=== PATIENT | male | born 1995 | race Caucasian/White ===

== ENCOUNTER 2016-08-10 23:24 | Emergency (ER) | payer BC ==
[~2016-08-10] VITALS: Ht 177.8 cm; Wt 78.0 kg
[~2016-08-10 23:24] MED LIST: CHLO1TAB47 PO
[2016-08-10 23:27] VITALS: TEMP 37; Ht 177.8 cm; Wt 78.0 kg
[2016-08-10] MEDS ORDERED: HYDROCODONE/ACETAMOPHEN 5/325MG TAB PO ONE (23:45)
--- NOTE | 2016-08-10 23:47 | EMERGENCY ROOM VISIT NOTE ---
History First contact with patient: 23:31 Chief Complaint: FALL Stated Complaint: FELL ON LF KNEE,CAN'T MOVE/BEND W/O INTENSE PAIN History of Present Illness The patient is a 21 year old male who presents to the Emergency Department by private vehicle for evaluation of his LEFT knee pain/injury. The patient reports that he was walking when he slipped on ice and fell striking the anterior aspect of the affected knee. He reports that he has had pain with ambulation or movement of the knee joint. He reports no history of fracture or injury of the affected knee otherwise. He denies any numbness or tingling into the distal extremity. He reports a moderate amount of discomfort to the anterior surface of the knee. He rates his current discomfort as an 8/10. He denies any associated back pain, hip pain, ankle pain, or foot pain. Review of Systems A complete 6 point review of systems was reviewed with the patient with pertinent positives and negatives as per history of present illness. All else were negative. Past Medical/Surgical History Medical Problems: (1) No chronic problems Family History Hypertension Social History Smoking Status: Never Smoker Smokeless Tobacco Use: No Alcohol Use: occasionally Drug Use: none Marital Status: single Occupation Status: [employer] student Current/Historical Medications Scheduled PRN Hydrocodone/Acetaminophen 5MG/325MG ([place] 5MG/325MG), 1-2 TABLET PO Q4H PRN for Pain Allergies Coded Allergies: No Known Allergies (Unverified , 08/10/16) Physical Exam Vital Signs Date Time Temp Pulse Resp B/P Pulse Ox O2 Delivery O2 Flow Rate FiO2 08/11/16 00:44 77 18 129/76 100 08/11/16 00:25 77 18 129/76 100 Room Air 08/10/16 23:27 37.0 84 18 112/59 98 Room Air Pain Rating (0-10): 8 Physical Exam VITAL SIGNS - Vital signs and nursing notes were reviewed. GENERAL - 21-year-old male appearing his stated age and in noticeable discomfort throughout the exam. MUSCULOSKELETAL - LEFT knee with moderate edema anteriorly. Step-off deformity noted inferiorly to the infrapatellar area. Crepitus with manipulation of the patella. Moderate tenderness to palpation over the affected area. +2/5 strength appreciated LEFT versus right. Patient unable to lift his heel off the bed. Pain with flexion of the affected knee. NEUROLOGIC/VASCULAR - Neurovascularly intact distally with +3/5 dorsalis pedis pulses palpated bilaterally. Normal sensation to light and sharp touch appreciated distally. Medical Decision & Procedures ER Provider Diagnostic Interpretation: X-ray of the LEFT knee was obtained and reviewed by myself. There is a longitudinal fracture through the midportion of the patella with a high riding patella. Moderate superficial edema noted. No other acute fractures or dislocations appreciated per my interpretation. Radiologist's impression unavailable at the time of dictation. Medications Administered Medications (Trade) Dose Ordered Sig/Gracia Route Start Time Stop Time Status Last Admin Dose Admin Acetaminophen/ Hydrocodone Bitart ([place] 5/325 Tab) 1 tab NOW ONCE PO 08/10/16 23:45 08/10/16 23:46 DC 08/10/16 23:42 1 TAB Acetaminophen/ Hydrocodone Bitart ([place] 5/325mg Home Pack) 1 homepack UD ONCE PO 08/11/16 00:00 08/11/16 00:01 DC 08/11/16 00:11 1 HOMEPACK ED Course Patient was seen and evaluated by myself. Patient was provided one [place] for pain. X-ray of the affected knee was obtained. Imaging results as above. Imaging results were reviewed with the patient who acknowledges understanding. Patient was placed in an John wrap and knee immobilizer. He was provided crutches to remain nonweightbearing. Patient remained neurovascularly intact pre-and post-splinting. I did speak with Dr. Hwang of [facility] in [place] and made him aware of the patient. They will see the patient in follow-up this week. He agrees with disposition and plan. Mother was provided images from today's visit. She will contact the office to make a follow-up appointment. They will return for any changing or worsening symptoms. Patient discharged home afebrile and in good condition. Medical Decision Given the patient's presentation and exam findings, I did elect to perform the above-mentioned workup. The patient presents today with an injury to the LEFT knee. He has a step-off deformity and is unable to lift his heel off the bed. X-ray confirms suspicion of fracture through the midportion of the patella. He likely ruptured his infrapatellar tendon as well. There is no other acute fractures appreciated per my interpretation. The patient was placed in an John wrap and provided a knee immobilizer for comfort. He is provided crutches to remain nonweightbearing. I did speak with orthopedics and consult. They agree with disposition and plan. He will follow-up this week. He will return for any changing or worsening symptoms. Patient discharged home in good condition. In the evaluation and treatment of this patient, the following differential diagnoses were considered: Patellar Fracture, Tibial Plateau Fracture, Distal Femur Fracture, ACL Injury, PCL Injury, Collateral Ligament Injury, Pes Anserine Bursitis, Maisonneuve Fracture. Impression Primary Impression: Left patella fracture Additional Impression: Patellar tendon rupture Departure Information Dispostion Home / Self-Care Condition GOOD Prescriptions Hydrocodone/Acetaminophen 5MG/325MG ([place] 5MG/325MG) Tab 1-2 TABLET PO Q4H Y for Pain, #24 TAB For Initial Treatment Prov: Richard Law PA-C 08/11/16 Referrals Gareth Prabhakar M.D. (PCP) Patient Instructions ED Fx Patella, My [facility] Additional Instructions You have been treated in the Emergency Department for a LEFT Patella Fracture. You have received pain medicine in the emergency department which impairs your ability to operate a vehicle. It is illegal for you to drive after receiving these medicines. You have been prescribed [place] to be used for pain control. This is a narcotic medication. You cannot drive or consume alcohol while on this medicine. This medicine should only be used for pain that cannot be controlled with over-the- counter pain medicines. For pain control, you can use the following fmrh-ans-resvsid medicines (if >12 yo): - Regular strength (325mg/tab) Tylenol (acetaminophen) 2 tabs every 4-6 hours as needed. Do not exceed 12 tablets in a 24 hour period. Avoid taking more than 4 grams (4000 mg) of Tylenol per day. This includes any other sources of acetaminophen you may take on a regular basis. - Regular strength (200 mg/tab) Advil (ibuprofen) 1-2 tabs every 4-6 hours as needed. Do not exceed a dose of 3200 mg per day. If this is a recent injury (<24 hrs), ice can be applied to the area of pain for the first 3 days to help decrease pain and inflammation. Ice massages can be performed by freezing water in a paper cup, peeling back the cup to expose the ice and then massaging over the affected area. You have been provided the number for an Orthopaedic Surgeon. You should call this number as soon as possible to establish a follow-up visit from today's Emergency Department visit. Keep the knee brace in place until cleared by Orthopedics. Use the crutches you have been provided to keep ALL weight off of the knee. Return to the Emergency Department if your current symptoms worsen despite treatment course outlined above. Problem Qualifiers
[2016-08-11] MEDS ORDERED: NORCO 5/325MG HOME PACK PO ONE
[2016-08-11] MEDS ORDERED: HYDR-5688 PO (00:34)
[2016-08-11 00:44] VITALS: BP 129/76; PULSE 77; O2SAT 100
--- NOTE | 2016-08-11 07:02 | DIAGNOSTIC IMAGING REPORT ---
LEFT KNEE 3 VIEWS CLINICAL HISTORY: Left knee pain status post trauma COMPARISON: None. DISCUSSION: There is a transverse fracture through the mid patellar pole. No fractures of the femur or tibia are visualized. There is prepatellar soft tissue swelling. There is a trace joint effusion. IMPRESSION: Acute patellar fracture. Electronically signed by: Alvino Alexander M.D. 08/11/2016 7:01 AM Dictated Date/Time: 08/11/2016 6:59 AM
== END 2016-08-11 00:44 | disposition home or self-care (01) ==
LOC: C.EDB 23:25 → C.EDA 08-11 00:44
DX: S82.002A Unspecified fracture of left patella, initial encounter for closed fracture (principal); S86.912A Strain of unspecified muscle(s) and tendon(s) at lower leg level, left leg, initial encounter; W00.0XXA Fall on same level due to ice and snow, initial encounter

== ENCOUNTER 2017-07-13 19:32 | Emergency (ER) | payer BC ==
[~2017-07-13] VITALS: Ht 177.8 cm; Wt 90.2 kg
[2017-07-13 19:34] VITALS: BP 149/83; PULSE 94; TEMP 37.2; O2SAT 94; Ht 177.8 cm; Wt 90.2 kg
[2017-07-13] MEDS ORDERED: IBUPROFEN 600 MG TAB PO STA (20:00)
--- NOTE | 2017-07-13 20:25 | DIAGNOSTIC IMAGING REPORT ---
RIGHT ANKLE 3 VIEWS HISTORY: R ankle pain COMPARISON: None. FINDINGS: There is no fracture or dislocation. Lateral soft tissue swelling. No radiopaque foreign bodies. IMPRESSION: No fractures. Electronically signed by: Gareth Llamas M.D. 07/13/2017 8:24 PM Dictated Date/Time: 07/13/2017 8:23 PM
--- NOTE | 2017-07-13 23:38 | EMERGENCY ROOM VISIT NOTE ---
ED Visit Note First contact with patient: 19:56 Chief Complaint: Right ankle pain. History of Present Illness: Mr. Phillips is a 22-year-old white male who ambulates into the ED complaining of lateral right ankle pain. Patient reports approximately 1.5 hours ago he was walking down steps and slipped and fell down 2-3 steps and twisted his ankle. Currently he is complaining of sharp pain over the lateral malleolus area. He rates his discomfort 3/10. The pain is nonradiating. The pain worsens with palpation and ambulation. He has not identified any alleviating factors related to the pain. He has not taken any medication for pain prior to arrival at the hospital. He denies any associated symptoms including hip pain, knee pain, lower leg pain, foot pain, leg/foot weakness/numbness/tingling. Additionally he denies any previous significant injuries or surgeries to the ankle. Review of Systems: As noted above in history of present illness. Past Medical History: Patient denies. Current Medications: Patient denies. Allergies to Medications: Patient denies. Social History: Patient feels safe in his home environment; he denies tobacco use. Physical Examination: Vital Signs: Date Time Temp Pulse Resp B/P (MAP) Pulse Ox O2 Delivery O2 Flow Rate FiO2 07/13/17 19:34 37.2 94 18 149/83 94 Room Air GENERAL: 22-year-old male in mild distress due to pain, nontoxic-appearing, afebrile and hemodynamically stable. NEUROLOGICAL: Awake, alert and oriented to person, place and time. Answering questions appropriately and following commands. Normal gait. Good hand eye coordination. SKIN: Warm, dry and pink. No soft tissue trauma noted. RIGHT LOWER EXTREMITY: No gross bony deformity. No tenderness in the hip, knee , lower leg or foot. Moderate tenderness with swelling over the anterior lateral malleolus. I do not appreciate any bony deformity or crepitus. No ligamentous laxity was observed. Full range of motion in plantar flexion, dorsiflexion, inversion and eversion of the ankle against resistance. Throughout the foot the skin was warm and pink and capillary refill is brisk. He was able to distinguish light sensations through all dermatomes. ED Course: Patient is assessed as noted above. Patient's medication list was reviewed. Patient is given 600 mg of ibuprofen by mouth and ice for pain and comfort. Right Ankle X-Rays: Were read by myself and the radiologist showing no fractures or dislocations. Patient was placed in a gel splint and on nonweightbearing crutches. Patient was educated about today's findings and instructed on his treatment plan ; he verbalized understanding and agreement with this plan. Clinical Impression: Right ankle pain. Disposition: Patient discharged home in stable condition accompanied by his mother and female friends; prior to departure he was reassessed and subjectively reported he was pain-free. Plan: For measures were discussed with the patient including rest, ice, elevation, splint and crutch use. Patient is encouraged to follow-up with critical care nurse specialist if no better in 7- 10 days. Patient is encouraged return ED for worsening/uncontrolled pain, uncontrolled swelling, foot weakness/numbness/tingling or any new/concerning symptoms.
== END 2017-07-13 20:40 | disposition home or self-care (01) ==
LOC: C.EDB 19:33 → C.EDD 20:40
DX: M25.571 Pain in right ankle and joints of right foot (principal)

== ENCOUNTER 2020-12-03 21:04 | Inpatient (IN) ==
[2020-12-03] MEDS ORDERED: PIPERACILLIN/TAZOBACTAM 4.5 GM/120 ML BAG IV ONE (21:50)
[2020-12-03] MEDS ORDERED: ALBUT/IPRATROP 3MG/0.5MG NEB 3 ML VIAL NEB STA (21:50)
[2020-12-03] MEDS ORDERED: PIPERACILL/TAZOBAC CONSULT ACTIVE PRN (21:50)
[2020-12-03] MEDS ORDERED: IBUPROFEN 800 MG TAB PO STA (21:52)
[2020-12-03] MEDS ORDERED: SODIUM CHLORIDE 0.9% 1000ML 1,000 ML IV SCH ×2 (22:00)
[2020-12-03 22:07] LABS: Basophils # (auto) 0.01 K/uL (0-0.2); Basophils % (auto) 0.1 %; Eosinophils # (auto) 0.01 K/uL (0-0.5); Eosinophils % (auto) 0.1 %; Hematocrit (blood only) 40.4 % (42-52); Hemoglobin 14.3 g/dL (14.0-18.0); Immature Granulocytes # (auto) 0.02 K/uL (0.00-0.02); Immature Granulocytes % (auto) 0.2 %; Lymphocytes # (auto) 0.94 K/uL (1.2-3.4); Lymphocytes % (auto) 8.2 %; Mean Corpuscular Hemoglobin 31.4 pg (25-34); Mean Corpuscular Hgb Conc 35.4 g/dL (32-36); Mean Corpuscular Volume 88.8 fL (80-100); Mean Platelet Volume 9.1 fL (7.4-10.4); Monocytes # (auto) 0.21 K/uL (0.11-0.59); Monocytes % (auto) 1.8 %; Neutrophils # (auto) 10.32 K/uL (1.4-6.5); Neutrophils % (auto) 89.6 %; Platelet Count 377 K/uL (130-400); RDW Coefficient of Variation 12.6 % (11.5-14.5); RDW Standard Deviation 40.8 fL (36.4-46.3); Red Blood Count 4.55 M/uL (4.7-6.1); White Blood Count 11.51 K/uL (4.8-10.8)
[2020-12-03 22:18] LABS: INR 1.1 (0.9-1.1); Partial Thromboplastin Ratio 1.1; Partial Thromboplastin Time 27.7 Seconds (21.0-31.0); Prothrombin Time 11.4 Seconds (9.0-12.0)
[2020-12-03 22:25] LABS: Albumin Globulin Ratio 0.7 (0.9-2); Albumin Level 3.5 gm/dl (3.4-5.0); Bilirubin,Total 1.1 mg/dl (0.2-1); Calcium 9.8 mg/dl (8.5-10.1); Creatinine Clr Calc Pharmacy 131.7 ml/min; Est GFR (African American) 123.5; Est GFR (Non-African American) 106.6; Globulin 5.2 gm/dl (2.5-4.0); Magnesium 2.4 mg/dl (1.8-2.4); Potassium 3.3 mmol/L (3.5-5.1); Total Protein 8.7 gm/dl (6.4-8.2)
--- NOTE | 2020-12-03 22:57 | History & Physical Report ---
Date of Service December 03, 2020 Assessment & Plan (1) Community acquired pneumonia: 25yo C male with CAP, failed outpatient regimen of Amoxicillin and Azithromycin, persistent fever and PO intolerance, report of hypoxia to 89% on RA from home. Patient admitted with similar presentation to [facility] one year ago -Admit to medical -Follow cultures -Check S. pneumoniae and Legionella -Ceftriaxone and Azithromycin for now -Tessalon -Flutter valve and IS -Zofran and Tylenol PRN -Obtain records from [facility] F/E/N - NSS at 125mL/hr x 2 liters, K repletion, Regular diet as tolerated Ppx - Lovenox 40 Code - Full Dispo - Admit to medical Present on Admission?: Yes History of Present Illness Chief Complaint: CAP Primary Care Provider: Pamela Rolle 25yo C male presenting with community acquired pneumonia with failed outpatient therapy. Patient's symptoms of cough, SOB, body aches, fever and chest tightness began on 11/29/20. He was seen in the ER on 11/30/20 and sent home with Azithromycin and Amoxicillin which he started on 11/30. He returned to the ER on 12/02/20 due to persistence of symptoms and was discharged home after medical consultation with instruction to continue antibiotics as prescribed, rest and aggressively hydrate. Patient returns today with persistent symptoms. He has been febrile ongoing for the last several days, responsive briefly to Tylenol. He has been taking his antibiotics but continues to feel ill - no energy, ongoing nausea, inability to tolerate PO. He also noted oxygen saturation of 89% at home. He has a dry cough with some chest discomfort. Of note, patient was hospitalized at [facility] x 5 days in September 2019 for similar presentation. He was treated with IV antibiotics and evaluated by several specialists. He does not have a history of asthma. His sister has an IgG deficiency and patient's mother is planning to have patient evaluated for the same. ER Course: 2L NSS, Moises, Teo Allergies Allergy/AdvReac Type Severity Reaction Status Date / Time No Known Allergies Allergy Verified 12/03/20 21:29 Home Medications Medication Instructions Recorded Confirmed Type albuterol sulfate 2 inh INHALATION Q4H PRN #8.5 g 11/30/20 12/03/20 Rx amoxicillin 1,000 mg PO Q8H 5 Days #30 cap 11/30/20 12/03/20 Rx azithromycin See Rx Instructions .ROUTE 11/30/20 12/03/20 Rx .COMPLEX #6 tab benzonatate [Tessalon Perles] 100 mg PO Q6H PRN #20 cap 11/30/20 12/03/20 Rx Past Med/Surg History Medical History Community acquired pneumonia Surgical History (Updated 12/03/20 @ 22:52 by Dyan Payan DO) History of tonsillectomy and adenoidectomy History of wisdom tooth extraction Family History (Updated 12/03/20 @ 22:52 by Dyan Payan DO) Other Hypertension IgG deficiency Social History (Updated 12/02/20 @ 03:12 by Dyan Payan DO) Smoking Status: Never smoker Hx Alcohol Use: Yes Hx Substance Use: No Preferred Language: Kenyan Feels Safe at Home: Yes Review of Systems Review of Systems: All systems reviewed & are unremarkable except as noted in HPI & below Physical Exam Physical Exam: General: patient resting comfortably, NAD, ill in appearance, AA&O x 4 Skin: warm, dry, intact, no rashes or lesions, HEENT: NC/AT, PERRL, EOMI, anicteric sclera, conjunctiva without injection, external ear normal to inspection and nontender, nares patent, slightly dry mucus membranes, dentition intact, no oropharyngeal lesions, neck supple, trachea midline, no LAD, no thyromegaly, no JVD Heart: +S1/S2, regular, tachycardic, no m/r/g Lungs: equal air entry bilaterally, +crackles in right mid-lung field, no rhonchi/wheezes Abd: +BS, soft, NT/ND, no masses/organomegaly/ascites Ext: warm, 2+ pulses in UE/LE bilaterally, no clubbing/cyanosis or edema Neuro: nonfocal, patient AA&O x 4, speech intact, no facial droop, moving all extremities on command with equal strength 5/5 Results & Data Results & Data (MN) Vital Signs (Past 12 Hours) Vital Signs Temp Pulse Pulse Resp BP Pulse Ox 12/03/20 22:33 114 H 22 137/71 96 05/08/21 22:09 108 H 20 93 12/03/20 22:06 93 12/03/20 21:52 39 C H 12/03/20 21:26 122 H 23 128/80 91 12/03/20 21:08 37.9 C H 144 H 24 120/74 91 Laboratory Results Laboratory Results WBC 11.51 K/uL (4.8-10.8) H 12/03/20 21:40 RBC 4.55 M/uL (4.7-6.1) L 12/03/20 21:40 Hgb 14.3 g/dL (14.0-18.0) 12/03/20 21:40 Hct 40.4 % (42-52) L 12/03/20 21:40 MCV 88.8 fL (80-100) 12/03/20 21:40 MCH 31.4 pg (25-34) 12/03/20 21:40 MCHC 35.4 g/dL (32-36) 12/03/20 21:40 RDW Std Deviation 40.8 fL (36.4-46.3) 12/03/20 21:40 RDW Coeff of Tony 12.6 % (11.5-14.5) 12/03/20 21:40 Plt Count 377 K/uL (130-400) 12/03/20 21:40 MPV 9.1 fL (7.4-10.4) 12/03/20 21:40 Immature Gran % (Auto) 0.2 % 12/03/20 21:40 Neut % (Auto) 89.6 % 12/03/20 21:40 Lymph % (Auto) 8.2 % 12/03/20 21:40 [place] % (Auto) 1.8 % 12/03/20 21:40 Eos % (Auto) 0.1 % 12/03/20 21:40 Baso % (Auto) 0.1 % 12/03/20 21:40 Neut # (Auto) 10.32 K/uL (1.4-6.5) H 12/03/20 21:40 Lymph # (Auto) 0.94 K/uL (1.2-3.4) L 12/03/20 21:40 [place] # (Auto) 0.21 K/uL (0.11-0.59) 12/03/20 21:40 Eos # (Auto) 0.01 K/uL (0-0.5) 12/03/20 21:40 Baso # (Auto) 0.01 K/uL (0-0.2) 12/03/20 21:40 Immature Gran # (Auto) 0.02 K/uL (0.00-0.02) 12/03/20 21:40 PT 11.4 Seconds (9.0-12.0) 12/03/20 21:40 INR 1.1 (0.9-1.1) 12/03/20 21:40 APTT 27.7 Seconds (21.0-31.0) 12/03/20 21:40 PTT Ratio 1.1 12/03/20 21:40 Sodium 136 mmol/L (136-145) 12/03/20 21:40 Potassium 3.3 mmol/L (3.5-5.1) L D 12/03/20 21:40 Chloride 102 mmol/L (98-107) 12/03/20 21:40 Carbon Dioxide 22 mmol/L (21-32) 12/03/20 21:40 Anion Gap 12.0 (3-11) H 12/03/20 21:40 BUN 8 mg/dl (7-18) 12/03/20 21:40 Creatinine 0.97 mg/dl (0.6-1.4) 12/03/20 21:40 Est Cr Clr Drug Dosing 131.7 ml/min 12/03/20 21:40 Est GFR ( Amer) 123.5 12/03/20 21:40 Est GFR (Non-Af Amer) 106.6 12/03/20 21:40 BUN/Creatinine Ratio 8.0 (10-20) L 12/03/20 21:40 Glucose 109 mg/dl (70-99) H 12/03/20 21:40 Lactate 1.4 mmol/L (0.4-2.0) 12/03/20 21:40 Calcium 9.8 mg/dl (8.5-10.1) 12/03/20 21:40 Magnesium 2.4 mg/dl (1.8-2.4) 12/03/20 21:40 Total Bilirubin 1.1 mg/dl (0.2-1) H 12/03/20 21:40 AST 26 U/L (15-37) 12/03/20 21:40 ALT 29 U/L (12-78) 12/03/20 21:40 Alkaline Phosphatase 88 U/L (45-117) 12/03/20 21:40 Total Protein 8.7 gm/dl (6.4-8.2) H 12/03/20 21:40 Albumin 3.5 gm/dl (3.4-5.0) 12/03/20 21:40 Globulin 5.2 gm/dl (2.5-4.0) H 12/03/20 21:40 Albumin/Globulin Ratio 0.7 (0.9-2) L 12/03/20 21:40 COVID-19 Eval Order [facility]Rsv at [facility] 12/03/20 22:18 Code Status & VTE Plan VTE Prophylaxis Plan VTE Prophylaxis will be ordered: Yes PG Care Time/CCT Total # of Minutes Spent Total Time Spent with Patient: Total time spent is greater than 50% in coor dination of care (as documented) at patient's floor/unit and/or counseling patient: Coding Level of Care Code 07885 Initial Inpt Care Lvl 2 Diagnoses Community acquired pneumonia J18.9 Laterality: unspecified laterality (1) Community acquired pneumonia Laterality: unspecified laterality Qualified Code(s): J18.9 - Pneumonia, unspecified organism
[2020-12-03 23:07] LABS: Influenza A virus by PCR Negative (Neg); Influenza B virus by PCR Negative (Neg); RSV by PCR Negative (Neg); SARS CoV2 RNA(COVID-19) InHosp NEGATIVE (Negative)
--- NOTE | 2020-12-03 23:15 | Emergency Department Note ---
History of Present Illness General Chief complaint: Illness Stated complaint: VOMITING, FEVER, CHILLS Time Seen by Provider: 12/03/20 21:26 History of Present Illness Maximum Pain Intensity: 4 This 25-year-old who has been seen twice for his pneumonia presents to the ER complaining of worsening pneumonia symptoms Location: Generalized Quality: Weak Severity: Moderate Duration: Past 5 days Timing: Started Saturday Context: Patient was concerned and came in Modifying factors: better with rest; worse with activity Patient states he has not been drinking or eating much. He feels quite weak and sick. He took Tylenol a few hours ago. No recent Motrin. He has been taking his antibiotics. Home Medications Medication Instructions Recorded Confirmed Type albuterol sulfate 2 inh INHALATION Q4H PRN #8.5 g 11/30/20 12/03/20 Rx amoxicillin 1,000 mg PO Q8H 5 Days #30 cap 11/30/20 12/03/20 Rx azithromycin See Rx Instructions .ROUTE 11/30/20 12/03/20 Rx .COMPLEX #6 tab benzonatate [Tessalon Perles] 100 mg PO Q6H PRN #20 cap 11/30/20 12/03/20 Rx Allergies Allergy/AdvReac Type Severity Reaction Status Date / Time No Known Allergies Allergy Verified 12/03/20 21:29 Past Med/Surg History Medical History Community acquired pneumonia Surgical History History of tonsillectomy and adenoidectomy History of wisdom tooth extraction Family History Other Hypertension IgG deficiency Social History Smoking Status: Never smoker Hx Alcohol Use: Yes Hx Substance Use: No Preferred Language: Venezuelan Feels Safe at Home: Yes Review of Systems A total of 10 systems reviewed and were otherwise negative Physical Exam Vital Signs Vital Signs - 24 hr 12/03/20 21:08 12/03/20 21:26 12/03/20 21:52 Temperature 37.9 C H 39 C H Temperature Source Temporal Artery Scan Oral Pulse Rate 144 H 122 H Pulse Rate [Right Radial] Respiratory Rate 24 23 Respiratory Effort / Characteristics Blood Pressure 120/74 128/80 Blood Pressure Mean 89 96 Pulse Oximetry 91 91 Oxygen Delivery Method Room Air Sepsis Recent Fever Within 48 Hours Yes Sepsis New/Unexplained Change in Mental Status N/A Sepsis Action Taken by Nursing No Action Required 12/03/20 22:06 12/03/20 22:09 12/03/20 22:33 Temperature Temperature Source Pulse Rate 114 H Pulse Rate [Right Radial] 108 H Respiratory Rate 20 22 Respiratory Effort / Characteristics Non-Labored Spontaneous Blood Pressure 137/71 Blood Pressure Mean 93 Pulse Oximetry 93 93 96 Oxygen Delivery Method Room Air Room Air Sepsis Recent Fever Within 48 Hours Sepsis New/Unexplained Change in Mental Status Sepsis Action Taken by Nursing 12/03/20 23:01 Temperature 38.3 C H Temperature Source Oral Pulse Rate Pulse Rate [Right Radial] Respiratory Rate Respiratory Effort / Characteristics Blood Pressure Blood Pressure Mean Pulse Oximetry Oxygen Delivery Method Sepsis Recent Fever Within 48 Hours Sepsis New/Unexplained Change in Mental Status Sepsis Action Taken by Nursing VITALS: Vitals are noted on the nurse's note and reviewed by myself. Vital signs febrile. GENERAL: Ill-appearing patient coughing SKIN: The skin was without rashes, erythema, edema, or bruising. There is no tenting of the skin. Capillary reflex less than 2 seconds. HEAD: Normocephalic atraumatic. EARS: External auditory canals clear, tympanic membranes pearly sprague without erythema or effusion bilaterally. EYES: Pupils equal round and reactive to light and accommodation. Conjunctivae without injection, sclerae without icterus. Extraocular movements intact. NOSE: Patent, turbinates without inflammation or discharge. No sinus tenderness. MOUTH: Mucous membranes dry. Pharynx without erythema or exudate. Uvula mid line. Airway patent. Tongue does not deviate. NECK: Supple without nuchal rigidity. No lymphadenopathy. No thyromegaly. Cervical spine is nontender. No JVD. HEART: Mildly tachycardic rate and rhythm LUNGS: Bibasilar rales. No retractions or accessory muscle use. ABDOMEN: Positive bowel sounds x 4. Normal tympanic percussion. Soft, nontender, without masses or organomegaly. Nair sign negative. No guarding or rebound tenderness. No CVA tenderness MUSCULOSKELETAL: No muscle atrophy, erythema, or edema noted. NEURO: Patient was alert and oriented to person place and time. Normal sensation to light and sharp touch. No focal neurological deficits. Course Administered Medications Discontinued Medications Albuterol (Albut/Ipratrop 3mg/0.5mg Neb 3 Ml Vial) 3 ml NEB NOW STA Stop: 12/03/20 21:51 Last Admin: 12/03/20 22:07 Dose: 3 ml Documented by: [id number] Sodium Chloride (Nss 1000ml) 1,000 mls @ 999 mls/hr IV .Q1H1M JANY Stop: 12/03/20 23:00 Last Infusion: 12/03/20 23:06 Dose: 0 mls/hr Documented by: [id number] Admin: 12/03/20 22:03 Dose: 999 mls/hr Documented by: [id number] Sodium Chloride (Nss 1000ml) 1,000 mls @ 999 mls/hr IV .Q1H1M JANY Stop: 12/03/20 22:51 Last Admin: 12/03/20 23:05 Dose: 999 mls/hr Documented by: [id number] Piperacillin Sod/Tazobactam Sod (Zosyn) 4.5 gm in 120 mls @ 240 mls/hr IV NOW ONE Stop: 12/03/20 22:19 Last Infusion: 12/03/20 22:59 Dose: 0 mls/hr Documented by: [id number] Admin: 12/03/20 22:16 Dose: 240 mls/hr Documented by: [id number] Ibuprofen (Ibuprofen 800 Mg Tab) 800 mg PO NOW STA Stop: 12/03/20 21:53 Last Admin: 12/03/20 22:02 Dose: 800 mg Documented by: [id number] Medical Decision Making Medical Records Attestation: I reviewed the patient's medical records. Home Medications Current Medication List: was personally reviewed by me Laboratory Data Attestation: I reviewed the patient's lab results. Result diagrams: 12/03/20 21:40 12/03/20 21:40 Lab Results 12/03/20 12/03/20 12/03/20 Range/Units 21:40 21:40 21:40 WBC 11.51 H (4.8-10.8) K/uL RBC 4.55 L (4.7-6.1) M/uL Hgb 14.3 (14.0-18.0) g/dL Hct 40.4 L (42-52) % MCV 88.8 (80-100) fL MCH 31.4 (25-34) pg MCHC 35.4 (32-36) g/dL RDW Std Deviation 40.8 (36.4-46.3) fL RDW Coeff of Tony 12.6 (11.5-14.5) % Plt Count 377 (130-400) K/uL MPV 9.1 (7.4-10.4) fL Immature Gran % (Auto) 0.2 % Neut % (Auto) 89.6 % Lymph % (Auto) 8.2 % Spalding % (Auto) 1.8 % Eos % (Auto) 0.1 % Baso % (Auto) 0.1 % Neut # (Auto) 10.32 H (1.4-6.5) K/uL Lymph # (Auto) 0.94 L (1.2-3.4) K/uL Sp[place]ding # (Auto) 0.21 (0.11-0.59) K/uL Eos # (Auto) 0.01 (0-0.5) K/uL Baso # (Auto) 0.01 (0-0.2) K/uL Immature Gran # (Auto) 0.02 (0.00-0.02) K/uL PT 11.4 (9.0-12.0) Seconds INR 1.1 (0.9-1.1) APTT 27.7 (21.0-31.0) Seconds PTT Ratio 1.1 Sodium 136 (136-145) mmol/L Potassium 3.3 L D (3.5-5.1) mmol/L Chloride 102 (98-107) mmol/L Carbon Dioxide 22 (21-32) mmol/L Anion Gap 12.0 H (3-11) BUN 8 (7-18) mg/dl Creatinine 0.97 (0.6-1.4) mg/dl Est Cr Clr Drug Dosing 131.7 ml/min Est GFR ( Amer) 123.5 Est GFR (Non-Af Amer) 106.6 BUN/Creatinine Ratio 8.0 L (10-20) Glucose 109 H (70-99) mg/dl Lactate (0.4-2.0) mmol/L Calcium 9.8 (8.5-10.1) mg/dl Magnesium 2.4 (1.8-2.4) mg/dl Total Bilirubin 1.1 H (0.2-1) mg/dl AST 26 (15-37) U/L ALT 29 (12-78) U/L Alkaline Phosphatase 88 (45-117) U/L Total Protein 8.7 H (6.4-8.2) gm/dl Albumin 3.5 (3.4-5.0) gm/dl Globulin 5.2 H (2.5-4.0) gm/dl Albumin/Globulin Ratio 0.7 L (0.9-2) COVID-19 Eval Order SARS-CoV-2 (PCR) (Negative) Influenza Type A (PCR) (Neg) Influenza Type B (PCR) (Neg) RSV (RT-PCR) (Neg) 12/03/20 12/03/20 12/03/20 Range/Units 21:40 22:18 22:18 WBC (4.8-10.8) K/uL RBC (4.7-6.1) M/uL Hgb (14.0-18.0) g/dL Hct (42-52) % MCV (80-100) fL MCH (25-34) pg MCHC (32-36) g/dL RDW Std Deviation (36.4-46.3) fL RDW Coeff of Tony (11.5-14.5) % Plt Count (130-400) K/uL MPV (7.4-10.4) fL Immature Gran % (Auto) % Neut % (Auto) % Lymph % (Auto) % Spalding % (Auto) % Eos % (Auto) % Baso % (Auto) % Neut # (Auto) (1.4-6.5) K/uL Lymph # (Auto) (1.2-3.4) K/uL Sp[place]ding # (Auto) (0.11-0.59) K/uL Eos # (Auto) (0-0.5) K/uL Baso # (Auto) (0-0.2) K/uL Immature Gran # (Auto) (0.00-0.02) K/uL PT (9.0-12.0) Seconds INR (0.9-1.1) APTT (21.0-31.0) Seconds PTT Ratio Sodium (136-145) mmol/L Potassium (3.5-5.1) mmol/L Chloride (98-107) mmol/L Carbon Dioxide (21-32) mmol/L Anion Gap (3-11) BUN (7-18) mg/dl Creatinine (0.6-1.4) mg/dl Est Cr Clr Drug Dosing ml/min Est GFR ( Amer) Est GFR (Non-Af Amer) BUN/Creatinine Ratio (10-20) Glucose (70-99) mg/dl Lactate 1.4 (0.4-2.0) mmol/L Calcium (8.5-10.1) mg/dl Magnesium (1.8-2.4) mg/dl Total Bilirubin (0.2-1) mg/dl AST (15-37) U/L ALT (12-78) U/L Alkaline Phosphatase (45-117) U/L Total Protein (6.4-8.2) gm/dl Albumin (3.4-5.0) gm/dl Globulin (2.5-4.0) gm/dl Albumin/Globulin Ratio (0.9-2) COVID-19 Eval Order CovFluRsv at [facility] SARS-CoV-2 (PCR) NEGATIVE (Negative) Influenza Type A (PCR) Negative (Neg) Influenza Type B (PCR) Negative (Neg) RSV (RT-PCR) Negative (Neg) Imaging Data Attestation: I personally reviewed and interpreted this imaging study as follows: MDM Narrative Prior records/ancillary studies reviewed. Triage Nursing notes reviewed. Additional history obtained from family. The patient's history was concerning for fever. Differential diagnosis: Etiologies such as viral syndrome, otitis, pharyngitis, pneumonia, influenza, meningitis, urinary tract infection, sepsis, bacteremia, as well as others were entertained. Physical examination: As above ER treatment provided: An order was placed for continuous cardiac monitoring. The monitor shows a rate of 60-1 50 with a sinus rhythm. Zosyn, IV fluids, nebulizer On reassessment the patient felt better. Diagnostics interpreted by me: ECG: Ordered for tachycardia EKG: Normal sinus, normal intervals, no acute ST-T wave changes. Rate of 126. Impression sinus tachycardia interpreted by myself I think arrhythmia is unlikely. EKG shows normal sinus rhythm with no interval abnormalities such as QT prolongation or WPW. There are no findings to suggest Brugada syndrome. Cardiac monitoring in the emergency department reveals no tachycardic or bradycardic dysrhythmia. Hypertrophic cardiomyopathy was considered but there are no clear historical elements pointing toward this. EKG is not suggestive. The QRS voltage is not extremely large and there are no suggestive Q waves. The labs revealed mild leukocytosis. Negative Covid. Blood cultures pending. Blood cultures from the other day were negative Imaging studies: Chest x-ray with bilateral lower lobe pneumonia per my interpretation Consultation: A consultation was placed with Dr. Payan. The case was discussed and diagnostics were reviewed. The patient was evaluated in the ER for further treatment. This appears to be consistent with pneumonia he is failed outpatient. Patient was given IV antibiotics. Medicine was consulted. He will be evaluated for possible admission. By the evaluation outlined above emergent etiologies such as otitis, pharyngitis, meningitis, urinary tract infection, sepsis, bacteremia, as well as others were deemed relatively unlikely. The pt informed about the findings as listed above. All questions were answered and pleased with the treatment. The chart was completed utilizing [employer] Speech voice recognition software. Grammatical errors, random word insertions, pronoun errors, and incomplete se ntences are an occassional consequence of this system due to software limitations, ambient noise, and hardware issues. Any formal questions or concerns about the content, text, or information contained within the body of this dictation should be directly addressed to the physician regional administrative assistant for cla rification. Impression & Plan Pneumonia, Failure of outpatient treatment Discharge Plan Visit Data Chief Complaint: Illness Stated Complaint: VOMITING, FEVER, CHILLS ED Provider: Cole Angulo ED Midlevel Provider: Reny Glover Discharge Problem: Pneumonia, Failure of outpatient treatment Patient Disposition: Admitted As Inpatient Condition: Fair Forms Stand Alone Forms: [facility] Prescriptions Prescriptions: No Action azithromycin 250 mg tablet See Rx Instructions .ROUTE .COMPLEX Qty: 6 RF: 0 amoxicillin 500 mg capsule 1,000 mg PO Q8H 5 Days Qty: 30 RF: 0 albuterol sulfate 90 mcg/actuation HFA aerosol inhaler 2 inh inhalation Q4H PRN (Reason: shortness of breath or wheezing) Qty: 8.5 RF: 0 benzonatate [Tessalon Perles] 100 mg capsule 100 mg PO Q6H PRN (Reason: cough) Qty: 20 RF: 0 Referrals Referrals: Pamela Rolle [Primary Care Provider] -
[2020-12-03] MEDS ORDERED: POTASSIUM CHLORIDE 20 MEQ/15 ML UDC PO STA (23:16)
[2020-12-04] MEDS: SODIUM CHLORIDE 0.9% 1000ML 1,000 ML IV SCH ×2 (00:03→08:52)
[2020-12-04] MEDS ORDERED: POTASSIUM CHLORIDE CRTAB 20 MEQ TABCR PO STA (00:03)
[2020-12-04] MEDS ORDERED: BENZONATATE 100 MG CAPSULE PO PRN (00:03)
[2020-12-04 00:54] LABS: Phosphorus 1.1 mg/dl (2.5-4.9)
[2020-12-04] MEDS: ONDANSETRON INJ 2 MG/ML 2 ML VIAL IV PRN ×3 (01:10→13:34)
[2020-12-04 01:55] LABS: Appearance Urine Clear (Clear); Bacteria Urine Automated Negative (Negative); Bilirubin Urine Negative (Negative); Blood Urine Negative (Negative); Color Urine Yellow; Glucose Urine UA Negative (Negative); Ketones Urine 3+ (Negative); Leukocyte Esterase Urine Negative (Negative); Nitrite Urine Negative (Negative); Protein Urine 2+ (Negative); RBC Urine Automated 0-4 /hpf (0-4); Specific Gravity Urine 1.015 (1.000-1.030); Urobilinogen Urine Negative (Negative); pH Urine 6.5 (4.5-7.5)
[2020-12-04] MEDS ORDERED: POTASSIUM PHOS 3 MMOL/1 ML INFUSION IV STA (02:28)
[2020-12-04] MEDS ORDERED: POTASSIUM PHOSPHATE 40 MMOL in SODIUM CHLORIDE 0.9% 1000ML 1,000 ML IV ONE (03:00)
[2020-12-04] MEDS: cefTRIAXone SODIUM 2,000 MG in DEXTROSE 5% 50 ML IV SCH (05:42)
[2020-12-04 06:59] LABS: Basophils # (auto) 0.01 K/uL (0-0.2); Basophils % (auto) 0.1 %; Eosinophils # (auto) 0.01 K/uL (0-0.5); Eosinophils % (auto) 0.1 %; Hematocrit (blood only) 36.6 % (42-52); Hemoglobin 12.5 g/dL (14.0-18.0); Immature Granulocytes # (auto) 0.02 K/uL (0.00-0.02); Immature Granulocytes % (auto) 0.2 %; Lymphocytes # (auto) 1.14 K/uL (1.2-3.4); Lymphocytes % (auto) 10.2 %; Mean Corpuscular Hemoglobin 30.3 pg (25-34); Mean Corpuscular Hgb Conc 34.2 g/dL (32-36); Mean Corpuscular Volume 88.8 fL (80-100); Mean Platelet Volume 8.7 fL (7.4-10.4); Monocytes # (auto) 0.15 K/uL (0.11-0.59); Monocytes % (auto) 1.3 %; Neutrophils # (auto) 9.88 K/uL (1.4-6.5); Neutrophils % (auto) 88.1 %; Platelet Count 324 K/uL (130-400); RDW Coefficient of Variation 12.8 % (11.5-14.5); RDW Standard Deviation 41.5 fL (36.4-46.3); Red Blood Count 4.12 M/uL (4.7-6.1); White Blood Count 11.21 K/uL (4.8-10.8)
[2020-12-04] MEDS: ACETAMINOPHEN 325 MG TAB PO PRN ×2 (07:16→18:24)
[2020-12-04 07:35] LABS: BUN Creatinine Ratio 7.7 (10-20); Calcium 8.8 mg/dl (8.5-10.1); Creatinine Clr Calc Pharmacy 155.2 ml/min; Est GFR (African American) 139.8; Est GFR (Non-African American) 120.6
--- NOTE | 2020-12-04 08:07 | XRay Report ---
XR chest 1V portable CLINICAL HISTORY: SEPSIS COMPARISON STUDY: Chest radiograph December 01, 2020. FINDINGS: Mild elevation of the right hemidiaphragm is noted. There is no pneumothorax or pleural eff usion. Moderate bilateral mid and lower lung airspace opacities have progressed. Cardiac size is at t he upper limits of normal. There is no evidence for pulmonary edema IMPRESSION: Progression of moderate bilateral airspace opacities suggestive of pneumonia. Radiograph ic follow-up to ensure resolution is recommended. ACT 112: Negative or not required by law. Electronically signed by: Anand Purvis M.D. 12/04/2020 8:05 AM
[2020-12-04] MEDS: AZITHROMYCIN 250 MG in DEXTROSE 5% 250 ML IV SCH (08:52)
[2020-12-04] MEDS: ENOXAPARIN INJ 40 MG/0.4 ML SYR SQ SCH (08:58)
--- NOTE | 2020-12-04 10:25 | Hospitalist Progress Note ---
Date of Service December 04, 2020 Assessment & Plan (1) Community acquired pneumonia: 25yo C male with CAP, failed outpatient regimen of Amoxicillin and Azithromycin, persistent fevers for 5 days and PO intolerance from suspected post-tussive emesis, report of hypoxia to 89% on RA from home. Patient admitted with similar presentation to [facility] one year ago. Community Acquired Pneumonia - CXR this AM read as progression of moderate bilateral airspace opacities suggestive of pneumonia which was has progressed compared to CXR from 12/01, 2 days prior, which reflects current need for hospitalization as failed outpatient Amoxicillin and Azithromycin. - Procal from 11/30 was WNL; will repeat. Could also be viral etiology if not improved with abx. - Blood cultures pending will follow - Added gram stain sputum as part of pneumonia workup, but since already on abx - may be false neg. - MRSA nares ordered to exclude need for MRSA coverage since pneumonia isn't isolated to lobar only - No significant cough in room today, post-tussive emesis explains why Zofran didn't work in outpatient, c/w tessalon. - Currently on Rocephin 2mg IV, and Azithromycin IV. Cephalosporin coverage is step up from Amoxicillin as suspect causative organism is Beta-Lactamase producing. Strep panel pending. RSV negative. COVID negative. Legionella pending, no GI signs. Azithromycin would provide coverage for atypicals even Legionella, Mycoplasma, Pertussis. Notes UTD immunizations. - Flutter valve and IS - Zofran and Tylenol PRN, consider making scheduled for comfort if fevers persist. - Other supportive care to help with comfort while recovering, duo/nebs etc. - Obtain records from [facility]. - No hypoxia here, monitor, no current supplemental O2, lungs are moving air great, some mild crackles at right base. Hypophosphatemia: - 1.1; repletion orders started by overnight provider. - Trend and replace if needed. F/E/N - NSS at 125mL/hr x 2 liters, K repletion, Regular diet as tolerated DVT Ppx - Lovenox 40mg SQ Code - Full Dispo - medical (2) Failure of outpatient treatment: (3) Hypophosphatemia: Admission and Anticipated Discharge Date Admission Date: December 03, 2020 Supervising Physician Co-Signing Physician Notes Resident Physician Supervision Note: I independently interviewed and examined the patient and verified the yost history and physical, reviewed labs and image studies and agree with resident Dr. Lopez findings and care plan. Subjective Notes feels similar to admission last night. Notes mild non-productive cough. No acute events were reported overnight. Noted to have had post-tussive emesis at home. Not requiring supplemental oxygen. No chest pain. Physical Exam Constitutional: WD/WN, vitals as above cooperative and comfortable sleeping, resting with comfort without tachypnea, easily arouses. Appears ill. Eyes: PERRL, conjunctivae normal, anicteric sclerae ENMT: external ear and nose normal, oropharynx normal Neck: trachea midline, no thyromegaly Respiratory: no respiratory distress, no labored breathing, does not use accessory muscles and no cough Auscultation: no diminished lung sounds and no wheezes mild inspiratory crackle at right posterior base. Strong air movem ent. Cardiovascular: RRR, no murmur, no edema Gastrointestinal (Abdomen): Percussion/Palpation: abdomen soft; abdomen nontender, no guarding and abdomen not rigid Musculoskeletal: Head/Neck/Chest: normocephalic and head atraumatic Skin: no rashes, warm and dry Neurologic: moves all extremities and awake Psychiatric: A+Ox3, euthymic affect Results & Data Results & Data ([facility]) Vital Signs (Past 12 Hours) Vital Signs Temp Pulse Pulse Pulse Resp BP BP 12/04/20 08:02 37.9 C H 93 H 16 124/69 12/04/20 00:55 37.4 C 95 H 14 107/52 L 12/03/20 23:30 104 H 16 132/66 12/03/20 23:01 38.3 C H 12/03/20 23:00 110 H 24 110/64 12/03/20 22:33 114 H 22 137/71 Pulse Ox 12/04/20 08:02 93 12/04/20 00:55 91 12/03/20 23:30 91 12/03/20 23:01 12/03/20 23:00 96 12/03/20 22:33 96 Laboratory Results Laboratory Results - last 24 hr 12/03/20 12/03/20 12/03/20 21:40 21:40 21:40 WBC 11.51 H RBC 4.55 L Hgb 14.3 Hct 40.4 L MCV 88.8 MCH 31.4 MCHC 35.4 RDW Std Deviation 40.8 RDW Coeff of Tony 12.6 Plt Count 377 MPV 9.1 Immature Gran % (Auto) 0.2 Neut % (Auto) 89.6 Lymph % (Auto) 8.2 Bourbon % (Auto) 1.8 Eos % (Auto) 0.1 Baso % (Auto) 0.1 Neut # (Auto) 10.32 H Lymph # (Auto) 0.94 L [place] # (Auto) 0.21 Eos # (Auto) 0.01 Baso # (Auto) 0.01 Immature Gran # (Auto) 0.02 PT 11.4 INR 1.1 APTT 27.7 PTT Ratio 1.1 Sodium 136 Potassium 3.3 L D Chloride 102 Carbon Dioxide 22 Anion Gap 12.0 H BUN 8 Creatinine 0.97 Est Cr Clr Drug Dosing 131.7 Est GFR ( Amer) 123.5 Est GFR (Non-Af Amer) 106.6 BUN/Creatinine Ratio 8.0 L Glucose 109 H Lactate Calcium 9.8 Phosphorus 1.1 L* Magnesium 2.4 Total Bilirubin 1.1 H AST 26 ALT 29 Alkaline Phosphatase 88 Total Protein 8.7 H Albumin 3.5 Globulin 5.2 H Albumin/Globulin Ratio 0.7 L Urine Color Urine Appearance Urine pH Ur Specific Calera Urine Protein Urine Glucose (UA) Urine Ketones Urine Blood Urine Nitrite Urine Bilirubin Urine Urobilinogen Ur Leukocyte Esterase Urine WBC (Auto) Urine RBC (Auto) U Hyaline Cast (Auto) U Epithel Cells (Auto) Urine Bacteria (Auto) Nasal Screen MRSA (PCR) COVID-19 Eval Order SARS-CoV-2 (PCR) Influenza Type A (PCR) Influenza Type B (PCR) Urine Legionella Ag RSV (RT-PCR) S.pneumoniae Type 1 IgG S.pneumoniae Type 3 IgG S.pneumoniae Type 4 IgG S.pneumoniae Type 5 IgG S.pneumoniae Type 8 IgG S.pneumoniae 9 (9N) IgG S.pneumon 12 (12F) IgG S.pneumoniae Typ 14 IgG S.pneumon 19 (19F) IgG S.pneumon 23 (23F) IgG S.pneumon 26 (6B) IgG S.pneumon 51 (7F) IgG S.pneumon 56 (18C) IgG S.pneumon 68 (9V) IgG 0512/03/20 12/03/20 21:40 22:12 22:18 WBC RBC Hgb Hct MCV MCH MCHC RDW Std Deviation RDW Coeff of Tony Plt Count MPV Immature Gran % (Auto) Neut % (Auto) Lymph % (Auto) Bourbon % (Auto) Eos % (Auto) Baso % (Auto) Neut # (Auto) Lymph # (Auto) Bourbon # (Auto) Eos # (Auto) Baso # (Auto) Immature Gran # (Auto) PT INR APTT PTT Ratio Sodium Potassium Chloride Carbon Dioxide Anion Gap BUN Creatinine Est Cr Clr Drug Dosing Est GFR ( Amer) Est GFR (Non-Af Amer) BUN/Creatinine Ratio Glucose Lactate 1.4 Calcium Phosphorus Magnesium Total Bilirubin AST ALT Alkaline Phosphatase Total Protein Albumin Globulin Albumin/Globulin Ratio Urine Color Urine Appearance Urine pH Ur Specific Calera Urine Protein Urine Glucose (UA) Urine Ketones Urine Blood Urine Nitrite Urine Bilirubin Urine Urobilinogen Ur Leukocyte Esterase Urine WBC (Auto) Urine RBC (Auto) U Hyaline Cast (Auto) U Epithel Cells (Auto) Urine Bacteria (Auto) Nasal Screen MRSA (PCR) COVID-19 Eval Order CovFluRsv at [facility] SARS-CoV-2 (PCR) Influenza Type A (PCR) Influenza Type B (PCR) Urine Legionella Ag RSV (RT-PCR) S.pneumoniae Type 1 IgG Pending S.pneumoniae Type 3 IgG Pending S.pneumoniae Type 4 IgG Pending S.pneumoniae Type 5 IgG Pending S.pneumoniae Type 8 IgG Pending S.pneumoniae 9 (9N) IgG Pending S.pneumon 12 (12F) IgG Pending S.pneumoniae Typ 14 IgG Pending S.pneumon 19 (19F) IgG Pending S.pneumon 23 (23F) IgG Pending S.pneumon 26 (6B) IgG Pending S.pneumon 51 (7F) IgG Pending S.pneumon 56 (18C) IgG Pending S.pneumon 68 (9V) IgG Pending 12/03/20 12/04/20 12/04/20 22:18 00:14 00:14 WBC RBC Hgb Hct MCV MCH MCHC RDW Std Deviation RDW Coeff of Tony Plt Count MPV Immature Gran % (Auto) Neut % (Auto) Lymph % (Auto) Bourbon % (Auto) Eos % (Auto) Baso % (Auto) Neut # (Auto) Lymph # (Auto) Bourbon # (Auto) Eos # (Auto) Baso # (Auto) Immature Gran # (Auto) PT INR APTT PTT Ratio Sodium Potassium Chloride Carbon Dioxide Anion Gap BUN Creatinine Est Cr Clr Drug Dosing Est GFR ( Amer) Est GFR (Non-Af Amer) BUN/Creatinine Ratio Glucose Lactate Calcium Phosphorus Magnesium Total Bilirubin AST ALT Alkaline Phosphatase Total Protein Albumin Globulin Albumin/Globulin Ratio Urine Color Yellow Urine Appearance Clear Urine pH 6.5 Ur Specific Calera 1.015 Urine Protein 2+ H Urine Glucose (UA) Negative Urine Ketones 3+ H Urine Blood Negative Urine Nitrite Negative Urine Bilirubin Negative Urine Urobilinogen Negative Ur Leukocyte Esterase Negative Urine WBC (Auto) 1-5 Urine RBC (Auto) 0-4 U Hyaline Cast (Auto) 1-5 U Epithel Cells (Auto) 10-20 H Urine Bacteria (Auto) Negative Nasal Screen MRSA (PCR) COVID-19 Eval Order SARS-CoV-2 (PCR) NEGATIVE Influenza Type A (PCR) Negative Influenza Type B (PCR) Negative Urine Legionella Ag Pending RSV (RT-PCR) Negative S.pneumoniae Type 1 IgG S.pneumoniae Type 3 IgG S.pneumoniae Type 4 IgG S.pneumoniae Type 5 IgG S.pneumoniae Type 8 IgG S.pneumoniae 9 (9N) IgG S.pneumon 12 (12F) IgG S.pneumoniae Typ 14 IgG S.pneumon 19 (19F) IgG S.pneumon 23 (23F) IgG S.pneumon 26 (6B) IgG S.pneumon 51 (7F) IgG S.pneumon 56 (18C) IgG S.pneumon 68 (9V) IgG 12/04/20 12/04/20 12/04/20 01:14 06:32 06:32 WBC 11.21 H RBC 4.12 L Hgb 12.5 L Hct 36.6 L MCV 88.8 MCH 30.3 MCHC 34.2 RDW Std Deviation 41.5 RDW Coeff of Tony 12.8 Plt Count 324 MPV 8.7 Immature Gran % (Auto) 0.2 Neut % (Auto) 88.1 Lymph % (Auto) 10.2 Bourbon % (Auto) 1.3 Eos % (Auto) 0.1 Baso % (Auto) 0.1 Neut # (Auto) 9.88 H Lymph # (Auto) 1.14 L [place] # (Auto) 0.15 Eos # (Auto) 0.01 Baso # (Auto) 0.01 Immature Gran # (Auto) 0.02 PT INR APTT PTT Ratio Sodium 140 Potassium 4.0 D Chloride 110 H Carbon Dioxide 22 Anion Gap 9.0 BUN 6 L Creatinine 0.83 Est Cr Clr Drug Dosing 155.2 Est GFR ( Amer) 139.8 Est GFR (Non-Af Amer) 120.6 BUN/Creatinine Ratio 7.7 L Glucose 112 H Lactate Calcium 8.8 Phosphorus Magnesium Total Bilirubin AST ALT Alkaline Phosphatase Total Protein Albumin Globulin Albumin/Globulin Ratio Urine Color Urine Appearance Urine pH Ur Specific [place] Urine Protein Urine Glucose (UA) Urine Ketones Urine Blood Urine Nitrite Urine Bilirubin Urine Urobilinogen Ur Leukocyte Esterase Urine WBC (Auto) Urine RBC (Auto) U Hyaline Cast (Auto) U Epithel Cells (Auto) Urine Bacteria (Auto) Nasal Screen MRSA (PCR) Negative COVID-19 Eval Order SARS-CoV-2 (PCR) Influenza Type A (PCR) Influenza Type B (PCR) Urine Legionella Ag RSV (RT-PCR) S.pneumoniae Type 1 IgG S.pneumoniae Type 3 IgG S.pneumoniae Type 4 IgG S.pneumoniae Type 5 IgG S.pneumoniae Type 8 IgG S.pneumoniae 9 (9N) IgG S.pneumon 12 (12F) IgG S.pneumoniae Typ 14 IgG S.pneumon 19 (19F) IgG S.pneumon 23 (23F) IgG S.pneumon 26 (6B) IgG S.pneumon 51 (7F) IgG S.pneumon 56 (18C) IgG S.pneumon 68 (9V) IgG Diagnostic Findings COMPARISON STUDY: Chest radiograph December 01, 2020. FINDINGS: Mild elevation of the right hemidiaphragm is noted. There is no pneumothorax or pleural effusion. Moderate bilateral mid and lower lung airspace opacities have progressed. Cardiac size is at the upper limits of normal. There is no evidence for pulmonary edema IMPRESSION: Progression of moderate bilateral airspace opacities suggestive of pneumonia. Medications Administered Acetaminophen (Acetaminophen 325 Mg Tab) 650 mg PO Q4H PRN PRN Reason: pain/fever Stop: 01/03/21 00:02 Last Admin: 12/04/20 07:16 Dose: 650 mg Documented by: [id number] Enoxaparin Sodium (Enoxaparin Inj 40 Mg/0.4 Ml Syr) 40 mg SQ Q24H JANY Stop: 01/03/21 07:59 Last Admin: 12/04/20 08:58 Dose: 40 mg Documented by: [id number] Ceftriaxone Sodium 2,000 mg/ (Dextrose) 70 mls @ 100 mls/hr IV Q24H JANY; Protocol Stop: 12/11/20 05:59 Last Infusion: 12/04/20 06:25 Dose: 0 mls/hr Documented by: [id number] Admin: 12/04/20 05:42 Dose: 100 mls/hr Documented by: [id number] Azithromycin 250 mg/ Dextrose 252.5 mls @ 125 mls/hr IV Q24H JANY Stop: 12/11/20 07:59 Last Admin: 12/04/20 08:52 Dose: 125 mls/hr Documented by: [id number] Sodium Chloride (Nss 1000ml) 1,000 mls @ 125 mls/hr IV .Q8H JANY Stop: 12/04/20 16:02 Last Admin: 12/04/20 08:52 Dose: 125 mls/hr Documented by: [id number] Infusion: 12/04/20 08:46 Dose: 125 mls/hr Documented by: [id number] Infusion: 12/04/20 06:25 Dose: 125 mls/hr Documented by: [id number] Infusion: 12/04/20 05:42 Dose: 0 mls/hr Documented by: [id number] Admin: 12/04/20 00:03 Dose: 125 mls/hr Documented by: [id number] Potassium Phosphate 40 mmol/ (Sodium Chloride) 1,013.3333 mls @ 100 mls/hr IV ONE ONE Stop: 12/04/20 13:07 Last Admin: 12/04/20 03:15 Dose: 100 mls/hr Documented by: [id number] Ondansetron HCl (Ondansetron Inj 2 Mg/Ml 2 Ml Vial) 4 mg IV Q6H PRN PRN Reason: Nausea Stop: 01/03/21 00:02 Last Admin: 12/04/20 07:11 Dose: 4 mg Documented by: [id number] Admin: 12/04/20 01:10 Dose: 4 mg Documented by: [id number] Resident Activity Tracking Resident Involvement: Resident Care Provided Care Provided: Adult Hospital Medicine (1) Community acquired pneumonia Laterality: unspecified laterality Qualified Code(s): J18.9 - Pneumonia, unspecified organism
--- NOTE | 2020-12-04 11:48 | Electrocardiogram Report ---
Test Reason : Blood Pressure : / mmHG Vent. Rate : 126 BPM Atrial Rate : 126 BPM P-R Int : 130 ms QRS Dur : 088 ms QT Int : 310 ms P-R-T Axes : 039 002 013 degrees QTc Int : 448 ms Sinus tachycardia Possible Left atrial enlargement Nonspecific ST abnormality Abnormal ECG When compared with ECG of 01-DEC-2020 23:03, No significant change was found Confirmed by Cole Richter ([id number]) on 12/04/2020 11:48:30 AM Referred By: REFERRED SELF Confirmed By:Cole Richter
[2020-12-04] MEDS ORDERED: ALBUT/IPRATROP 3MG/0.5MG NEB 3 ML VIAL NEB PRN (14:39)
[2020-12-04] MEDS ORDERED: MELATONIN 3 MG TAB PO PRN (14:39)
[2020-12-04] MEDS ORDERED: FAMOTIDINE 20 MG TAB PO PRN (14:40)
[2020-12-04] MEDS: KETOROLAC TROMETHAMINE 15 MG/ML VIAL IV PRN (20:45)
[2020-12-05] MEDS: cefTRIAXone SODIUM 2,000 MG in DEXTROSE 5% 50 ML IV SCH (05:52)
[2020-12-05] MEDS: KETOROLAC TROMETHAMINE 15 MG/ML VIAL IV PRN (05:59)
[2020-12-05] MEDS: ONDANSETRON INJ 2 MG/ML 2 ML VIAL IV PRN ×2 (06:06→12:08)
[2020-12-05 06:42] LABS: Basophils # (auto) 0.01 K/uL (0-0.2); Basophils % (auto) 0.1 %; Eosinophils # (auto) 0.01 K/uL (0-0.5); Eosinophils % (auto) 0.1 %; Hematocrit (blood only) 35.2 % (42-52); Hemoglobin 12.3 g/dL (14.0-18.0); Immature Granulocytes # (auto) 0.03 K/uL (0.00-0.02); Immature Granulocytes % (auto) 0.3 %; Lymphocytes # (auto) 1.42 K/uL (1.2-3.4); Lymphocytes % (auto) 12.8 %; Mean Corpuscular Hemoglobin 30.4 pg (25-34); Mean Corpuscular Hgb Conc 34.9 g/dL (32-36); Mean Corpuscular Volume 87.1 fL (80-100); Mean Platelet Volume 8.6 fL (7.4-10.4); Monocytes # (auto) 0.21 K/uL (0.11-0.59); Monocytes % (auto) 1.9 %; Neutrophils # (auto) 9.41 K/uL (1.4-6.5); Neutrophils % (auto) 84.8 %; Platelet Count 349 K/uL (130-400); RDW Coefficient of Variation 12.7 % (11.5-14.5); RDW Standard Deviation 40.9 fL (36.4-46.3); Red Blood Count 4.04 M/uL (4.7-6.1); White Blood Count 11.09 K/uL (4.8-10.8)
[2020-12-05 07:10] LABS: Calcium 8.8 mg/dl (8.5-10.1); Creatinine Clr Calc Pharmacy 165.1 ml/min; Est GFR (African American) 143.4; Est GFR (Non-African American) 123.7; Phosphorus 2.5 mg/dl (2.5-4.9); Potassium 3.5 mmol/L (3.5-5.1)
[2020-12-05] MEDS: AZITHROMYCIN 250 MG in DEXTROSE 5% 250 ML IV SCH (08:41)
[2020-12-05] MEDS: ENOXAPARIN INJ 40 MG/0.4 ML SYR SQ SCH (08:41)
[2020-12-05] MEDS: PROMETHAZINE HCL 6.25 MG in SODIUM CHLORIDE 0.9% 50 ML IV PRN (16:12)
--- NOTE | 2020-12-05 17:41 | Medical Student Progress Note ---
Date of Service December 05, 2020 Assessment & Plan (1) Community acquired pneumonia: Js Phillips is a 25-year-old male with a PMHx of community acquired pneumonia (2019) and viral meningitis who presented to [facility] emergency department on 11/30/20 with a 1-day history of cough, shortness of breath, and fever. CXR revealed bibasilar opacities suggestive of pneumonia and patient was prescribed azithromycin and amoxicillin for outpatient treatment of community acquired pneumonia. However, he returned to the emergency department on 12/02/20 with nausea, vomiting, dehydration, and post-tussive emesis at which time he was admitted for inpatient treatment of community acquired pneumonia. 1. Community Acquired Pneumonia * CXR 12/03/20: moderate bilateral airspace opacities suggestive of pneumonia that had progressed compared to CXR on 12/01/20. * IV Ceftriaxone + Azithromycin initiated 12/03/20. Patient on day three. Current regimen should provide adequate coverage for most common and atypical bacteria associated with CAP. However, if patient remains afebrile tomorrow, consider altering antibiotic regimen to include a fluoroquinolone for broader coverage of gram negative pathogens such as H. influenza. * MRSA swab negative * Blood cultures negative 08/30 * Strep panel pending. Procalcitonin within normal limits. * Legionella antigen pending. Normal LFTs. Prominent GI symptoms but they seem to be related to antibiotic-induced nausea. * Tessalon anti-tussive. Zofran, Promethazine, and famotidine PRN for GI symptoms * Recommend outpatient follow up to investigate potential immunodeficiency. Patient has had two episodes of CAP within last two years as well as a history or viral meningitis and recurrent childhood infections. Patient also has a sister with IgA deficiency 2. Hypophosphatemia * Resolved. Phosphate 1.1 on admission. Repleted to 2.5 Code Status: Full Code F/E/N: Regular Diet VTE PPx: Lovenox Disposition: Medical Floor Laterality: unspecified laterality Qualified Code(s): J18.9 - Pneumonia, unspecified organism Admission and Anticipated Discharge Date Admission Date: December 03, 2020 Supervising Attestation I personally examined the patient and verified all yost points of history and exam, discussed case, and agree with decision making with Dr Uzma Smyth [id number] Feeling about the same. Still little bit nauseated. Notes that because of the nausea, which he relates to antibiotic dosing, he has not really eaten much of anything in the last several days. Feels more or less the same as whenever he first got diagnosed with pneumonia around November 30. Vitals noted, in general he is awake and alert pleasant no distress but does appear quite fatigued. HEENT normocephalic atraumatic mucous membranes moist. Breathing unlabored no accessory muscle use good effort. Lungs show faint rales base right greater than base left. No wheezes. No accessory muscle use, good effort. No focal neuro deficits. Community-acquired pneumoniafailed outpatient treatmentcontinue Zithromax and Rocephin, if he continues to spike fevers into tomorrow, then may need to consider treatment failure and change coverage particularly gram-negative coverage to something more broad with a different mechanism, such as a arnulfo quinolone. I also would not be surprised at all if his Legionella antigen came back positive, continue Zithromax for that. He does not appear sicker, just not getting better. Continue current care and follow closely. As far as his nausea, Pepcid twice daily for now, Zofran scheduled for now, follow closely, encourage oral intake. Otherwise as above. Subjective Patient states that he still feels very fatigued and mildly short of breath today. He also continues to endorse nausea and his last episode of emesis was yesterday. He notes that the nausea mainly occurs after antibiotic administration, which is consistent with the pattern of nausea that he experienced during an episode of CAP treated with antibiotics one year ago. He does not endorse any chest pain, abdominal pain, change in bowel movement frequency or consistency, headache, or lightheadedness with ambulation. He also notes that his cough is mild and nonproductive. He notes that his sister has IgA deficiency but he has never been tested for immunodeficiencies. He endorses frequent childhood infections such as recurrent otitis media and URIs. He also had pneumonia as a baby and a very similar episode of community-acquired pneumonia one year ago. He also had viral meningitis in 2010. Review of Systems Constitutional: + fatigue, + weakness and + anorexia; no fever and no chills Eyes: no problem reported Ear, Nose, Mouth, Throat: no problem reported Respiratory: as per Subjective / HPI Cardiovascular: as per Subjective / HPI Gastrointestinal: as per Subjective / HPI Genitourinary: + as per Subjective / HPI Neurologic: no problem reported Psychiatric: no problem reported Physical Exam Constitutional: WD/WN, vitals as above + ill appearing; no acute distress Eyes: PERRL, conjunctivae normal, anicteric sclerae ENMT: external ear and nose normal, oropharynx normal Neck: normal visual inspection Respiratory: normal respiratory effort; does not use accessory muscles and no cough (no cough during deep inspiration) Auscultation: + crackles (mild. right lower lung lobe ); no rhonchi, no wheezes and no bronchial breath sounds Cardiovascular: RRR, no murmur, no edema Gastrointestinal (Abdomen): normal bowel sounds, soft, nontender, no hepatosplenomegaly Skin: no rashes, warm and dry Psychiatric: A+Ox3, euthymic affect Results & Data ([facility]) Vital Signs (Past 12 Hours) Vital Signs Temp Pulse Pulse Resp BP BP Pulse Ox 12/05/20 15:30 37.9 C H 89 18 134/74 91 12/05/20 07:40 118 H 16 91 12/05/20 07:14 37.6 C H 93 H 16 121/78 91 12/05/20 06:38 38.4 C H 12/05/20 05:54 38.5 C H
--- NOTE | 2020-12-05 18:28 | Billing Data ---
Date of Service December 05, 2020 Coding Level of Care Code 12716 Subseq Hosp Care Lvl 3
[2020-12-05] MEDS: ONDANSETRON INJ 2 MG/ML 2 ML VIAL IV SCH (19:33)
[2020-12-05] MEDS: FAMOTIDINE 20 MG TAB PO SCH (20:47)
--- NOTE | 2020-12-05 22:34 | Communication Note ---
Date of Service: December 05, 2020 Subjective: nursing notified that the patient was feeling nauseous when drinking and felt dehydrated Objective: saturating well on room air A/P: - placed patient on NSS 125 ml/h for 2 bags
[2020-12-05] MEDS ORDERED: SODIUM CHLORIDE 0.9% 1000ML 500 ML IV SCH (22:45)
[2020-12-06] MEDS: ONDANSETRON INJ 2 MG/ML 2 ML VIAL IV SCH ×3 (00:12→11:15)
[2020-12-06] MEDS: cefTRIAXone SODIUM 2,000 MG in DEXTROSE 5% 50 ML IV SCH (05:38)
[2020-12-06 06:33] LABS: Basophils # (auto) 0.01 K/uL (0-0.2); Basophils % (auto) 0.1 %; Hematocrit (blood only) 36.8 % (42-52); Hemoglobin 12.8 g/dL (14.0-18.0); Immature Granulocytes # (auto) 0.06 K/uL (0.00-0.02); Immature Granulocytes % (auto) 0.5 %; Lymphocytes # (auto) 1.37 K/uL (1.2-3.4); Lymphocytes % (auto) 12.1 %; Mean Corpuscular Hemoglobin 30.2 pg (25-34); Mean Corpuscular Hgb Conc 34.8 g/dL (32-36); Mean Corpuscular Volume 86.8 fL (80-100); Mean Platelet Volume 8.5 fL (7.4-10.4); Monocytes # (auto) 0.35 K/uL (0.11-0.59); Monocytes % (auto) 3.1 %; Neutrophils % (auto) 84.2 %; Platelet Count 382 K/uL (130-400); RDW Coefficient of Variation 12.8 % (11.5-14.5); RDW Standard Deviation 41.1 fL (36.4-46.3); Red Blood Count 4.24 M/uL (4.7-6.1); White Blood Count 11.29 K/uL (4.8-10.8)
[2020-12-06 07:10] LABS: Calcium 8.8 mg/dl (8.5-10.1); Creatinine Clr Calc Pharmacy 143.1 ml/min; Est GFR (African American) 135.2; Est GFR (Non-African American) 116.6; Potassium 3.6 mmol/L (3.5-5.1)
[2020-12-06] MEDS: AZITHROMYCIN 250 MG in DEXTROSE 5% 250 ML IV SCH (07:44)
[2020-12-06] MEDS: ENOXAPARIN INJ 40 MG/0.4 ML SYR SQ SCH (07:45)
[2020-12-06] MEDS: FAMOTIDINE 20 MG TAB PO SCH ×2 (07:45→20:23)
[2020-12-06] MEDS: ACETAMINOPHEN 325 MG TAB PO PRN ×2 (07:45→22:52)
[2020-12-06] MEDS: PROMETHAZINE HCL 6.25 MG in SODIUM CHLORIDE 0.9% 50 ML IV PRN ×3 (08:14→22:39)
[2020-12-06] MEDS ORDERED: MOXIFLOXACIN / 0.8% SALINE 400 MG/250 ML BAG IV SCH (09:00)
[2020-12-06] MEDS: levoFLOXacin/D5W 750 MG/150 ML BAG IV SCH (09:34)
--- NOTE | 2020-12-06 11:19 | Medical Student Progress Note ---
Date of Service December 06, 2020 Assessment & Plan (1) Community acquired pneumonia: Js Phillips is a 25-year-old male with a PMHx of community acquired pneumonia (2019) and viral meningitis who presented to [facility] emergency department on 11/30/20 with a 1-day history of cough, shortness of breath, and fever. CXR revealed bibasilar opacities suggestive of pneumonia and patient was prescribed azithromycin and amoxicillin for outpatient treatment of community acquired pneumonia. However, he returned to the emergency department on 12/02/20 with nausea, vomiting, dehydration, and post-tussive emesis at which time he was admitted for inpatient treatment of community acquired pneumonia. 1. Community Acquired Pneumonia * CXR 12/03/20: moderate bilateral airspace opacities suggestive of pneumonia that had progressed compared to CXR on 12/01/20. * IV Ceftriaxone + Azithromycin initiated 12/03/20. Discontinued 12/06/20 due to insufficient clinical improvement and persistent fever. Initiated IV Levofloxacin on 12/06/20. Patient has been on multiple beta lactam antibiotics without improvement so change to Levofloxacin may cover potential resistant bacteria such as H. influenza Levofloxacin will provide legionella coverage as well as legionella antigen is still pending. * MRSA swab negative * Covid swab negative on admission. Ordered recheck 12/06/20 * Blood cultures negative 08/30 * Strep panel pending. Procalcitonin within normal limits. * Legionella antigen pending. Normal LFTs. Prominent GI symptoms but they seem to be related to antibiotic-induced nausea. * Tessalon anti-tussive. Zofran, Promethazine, and famotidine PRN for GI symptoms * Consider investigation for potential immunodeficiency such as CVID. Patient has had two episodes of CAP within last two years as well as a history or viral meningitis and recurrent childhood infections. Patient also has a sister with IgA deficiency. 2. Nausea Patient continues to experience frequent nausea. It is currently unclear whether the patient's nausea is secondary to an antibiotic side effect vs Legionella symptoms. * Legionella antigen pending * Started IV Metoclopramide 10 mg PRN on 12/06/20 3. History of Recurrent Infections Patient has had two episodes of CAP within the last 1-2 years as well as a history of viral meningitis and frequent childhood infections. He also has a sibling with IgA deficiency. Due to the patient's personal and family history, it is reasonable to obtain immunoglobulin levels at this time to investigate for CVID or another immunodeficiency. * Ordered Immunoglobulin levels 3. Hypophosphatemia * Resolved. Phosphate 1.1 on admission. Repleted to 2.5 Code Status: Full Code F/E/N: Regular Diet VTE PPx: Lovenox Disposition: Medical Floor Laterality: unspecified laterality Qualified Code(s): J18.9 - Pneumonia, unspecified organism Admission and Anticipated Discharge Date Admission Date: December 03, 2020 Supervising Attestation I personally examined the patient and verified all yost points of history and exam, discussed case, and agree with decision making with Dr Uzma Smyth MS4 continues to feel about the same Vitals noted, in general he is awake and alert pleasant no distress but does appear quite fatigued. HEENT normocephalic atraumatic mucous membranes moist. Breathing unlabored no accessory muscle use good effort. breathing unlabored no accessory muscles good effort skin no rashes no pallor or icterus. Community-acquired pneumonia w sepsis present on admissionfailed outpatient treatmentstill spiking temps, concern on legionella vs possible gram negative resistant to beta lactams vs IgG deficiency. checking levels for IgG IgA IgM. change to levaquin. continue supportive care. short trial of reglan for nausea. await records from [facility] from last year otherwise as above Subjective Patient continues to endorse subjective fever, weakness, and fatigue. He required fluids overnight because he felt dehydrated, which he attributes to minimal oral intake yesterday secondary to fatigue and nausea. He continues to endorse nausea today and he vomited this morning. He has minimal appetite and he was only able to tolerate crackers for dinner last night. He still thinks that his nausea is related to antibiotic infusion. He does not endorse abdominal pain, or change in bowel movements. He denies shortness of breath but endorses mild pleuritic chest pain. He also denies chills or headache. Review of Systems Constitutional: as per Subjective / HPI Eyes: no problem reported Ear, Nose, Mouth, Throat: no problem reported Respiratory: as per Subjective / HPI Cardiovascular: as per Subjective / HPI Gastrointestinal: as per Subjective / HPI Genitourinary: no dysuria Musculoskeletal: as per Subjective / HPI Neurologic: no problem reported Psychiatric: no problem reported Physical Exam Constitutional: + ill appearing; no acute distress Eyes: PERRL, conjunctivae normal, anicteric sclerae ENMT: external ear and nose normal, oropharynx normal Neck: normal visual inspection Respiratory: normal respiratory effort; no labored breathing Auscultation: + crackles (mild. bilateral lower lung lubes); no rhonchi and no wheezes Cardiovascular: RRR, no murmur, no edema Gastrointestinal (Abdomen): normal bowel sounds, soft, nontender, no hepatosplenomegaly Skin: no rashes, warm and dry Psychiatric: A+Ox3, euthymic affect Results & Data ([facility]) Vital Signs (Past 12 Hours) Vital Signs Temp Pulse Resp BP Pulse Ox 12/06/20 07:35 38.5 C H 80 16 115/71 96
[2020-12-06 12:01] LABS: Influenza A virus by PCR Negative (Neg); Influenza B virus by PCR Negative (Neg); RSV by PCR Negative (Neg); SARS CoV2 RNA(COVID-19) InHosp NEGATIVE (Negative)
[2020-12-06] MEDS ORDERED: ONDANSETRON INJ 2 MG/ML 2 ML VIAL IV PRN (12:01)
[2020-12-06 18:12] LABS: Immunoglobulin M 97.7 mg/dl (40-230)
--- NOTE | 2020-12-06 19:12 | Billing Data ---
Date of Service December 06, 2020 Coding Level of Care Code 84148 Subseq Hosp Care Lvl 3
[2020-12-07 06:21] LABS: Basophils # (auto) 0.02 K/uL (0-0.2); Basophils % (auto) 0.2 %; Eosinophils # (auto) 0.01 K/uL (0-0.5); Eosinophils % (auto) 0.1 %; Hematocrit (blood only) 39.4 % (42-52); Hemoglobin 13.6 g/dL (14.0-18.0); Immature Granulocytes # (auto) 0.08 K/uL (0.00-0.02); Immature Granulocytes % (auto) 0.7 %; Lymphocytes # (auto) 1.42 K/uL (1.2-3.4); Lymphocytes % (auto) 12.8 %; Mean Corpuscular Hemoglobin 30.6 pg (25-34); Mean Corpuscular Hgb Conc 34.5 g/dL (32-36); Mean Corpuscular Volume 88.5 fL (80-100); Monocytes # (auto) 0.23 K/uL (0.11-0.59); Monocytes % (auto) 2.1 %; Neutrophils # (auto) 9.33 K/uL (1.4-6.5); Neutrophils % (auto) 84.1 %; Platelet Count 477 K/uL (130-400); RDW Standard Deviation 42.4 fL (36.4-46.3); Red Blood Count 4.45 M/uL (4.7-6.1); White Blood Count 11.09 K/uL (4.8-10.8)
[2020-12-07] MEDS: levoFLOXacin/D5W 750 MG/150 ML BAG IV SCH (07:31)
[2020-12-07] MEDS: FAMOTIDINE 20 MG TAB PO SCH ×2 (07:32→20:21)
[2020-12-07] MEDS: ENOXAPARIN INJ 40 MG/0.4 ML SYR SQ SCH (07:32)
[2020-12-07] MEDS: METOCLOPRAMIDE HCL INJ 5 MG/ML 2 ML VIAL IV PRN ×3 (07:33→23:44)
[2020-12-07] MEDS ORDERED: OPTIRAY 300 100mL IV ONE (08:36)
--- NOTE | 2020-12-07 08:52 | CT Scan Report ---
CHEST CT WITH CONTRAST CT DOSE: 566.76 mGycm HISTORY: Acute fever with reported pneumonia PNA on abx with persistent fevers TECHNIQUE: Multiaxial CT images of the chest were performed following the IV administration of 89 cc of Optiray. A dose lowering technique was utilized adhering to the principles of ALARA. COMPARISON: Chest radiograph 12/03/2020 FINDINGS: Unremarkable thyroid. There are scattered prominent nonenlarged mediastinal lymph nodes measuring up to 8 mm which are likely reactive. Mildly enlarged right hilar lymph node measures 12 mm. The heart i s normal in size without pericardial effusion. No thoracic aortic aneurysm or dissection. There is pa tency of the imaged great vessels. Unremarkable pulmonary artery. Trace pleural effusions. Moderate bilateral subpleural predominant groundglass opacities are noted wi thin all lobes bilaterally. Additionally, there are patchy consolidative opacities within the basilar segments of the lower lobes. 6 mm solid nodule of the right lower lobe, image 190 series 4. Central airways are patent. No pneumoperitoneum. No acute process of the imaged upper abdomen. Small hiatal hernia. Hepatic steat osis. Unremarkable soft tissues. No acute fracture. IMPRESSION: 1. Multilobar distribution of bilateral peripheral predominant groundglass opacities are noted along with bibasilar patchy consolidation. Findings are compatible with multifocal pneumonia, possibly maddi l etiology. 2. Mild mediastinal and hilar adenopathy, likely reactive. 3. Trace pleural effusions. 4. Small hiatal hernia. 5. Hepatic steatosis. ACT 112: Negative or not required by law. Electronically signed by: Edwin Will M.D. 12/07/2020 8:51 AM
--- NOTE | 2020-12-07 10:18 | Medical Student Progress Note ---
Date of Service December 07, 2020 Assessment & Plan (1) Community acquired pneumonia: Js Phillips is a 25-year-old male with a PMHx of community acquired pneumonia (2019) and viral meningitis who presented to [facility] emergency department on 11/30/20 with a 1-day history of cough, shortness of breath, and fever. CXR revealed bibasilar opacities suggestive of pneumonia and patient was prescribed azithromycin and amoxicillin for outpatient treatment of community acquired pneumonia. However, he returned to the emergency department on 12/02/20 with nausea, vomiting, dehydration, and post-tussive emesis at which time he was admitted for inpatient treatment of community acquired pneumonia. 1. Community Acquired Pneumonia * CXR 12/03/20: moderate bilateral airspace opacities suggestive of pneumonia that had progressed compared to CXR on 12/01/20. * IV Ceftriaxone + Azithromycin initiated 12/03/20. Discontinued 12/06/20 due to insufficient clinical improvement and persistent fever. Initiated IV Levofloxacin on 12/06/20. Patient has been on multiple beta lactam antibiotics without improvement so change to Levofloxacin may cover potential resistant bacteria such as H. influenza Levofloxacin will provide legionella coverage as well as legionella antigen is still pending. * MRSA swab negative on admission. Repeat swab 12/07/20 also negative * Covid swab negative on admission. Repeat covid swab negative on 12/06/20. Influenza and RSV negative * Blood cultures negative 08/30 * Strep panel pending. * Procalcitonin within normal limits on admission. Repeat level on 12/07/20 elevated at 0.78 * Legionella antigen negative. Repeat Legionella antigen pending. Normal LFTs. Prominent GI symptoms but they seem to be related to antibiotic-induced nausea. * Tessalon anti-tussive. Zofran, Promethazine, and famotidine PRN for GI symptoms. IV Metoclopramide started 12/06/20 due to persistent nausea. * Immunoglobulin levels: IgG 615 (mildly low), IgA (193) and IgM (97.7) within normal range * Chest CT 12/07/20: Bilateral peripheral predominant ground glass opacities with bibasilar patchy consolidation, suggestive of multifocal PNA. Mild mediastinal and hilar adenopathy, likely reactive. Trace pleural effusions bilaterally * ESR (127) and CRP (39.2) both elevated * NT-proBNP normal (131) * Mycoplasma IgM pending * HIV screening pending. Verbal consent obtained * Pulmonology consult appreciated. If fevers persist, further investigation via Bronchoscopy indicated * Patient endorses vaping e-cigarettes. Last use >1 month ago. Patient began using e-cigarettes within the past year (after 2020 admission for PNA) 2. Nausea Patient continues to experience frequent nausea. It is currently unclear whether the patient's nausea is secondary to an antibiotic side effect vs Legionella symptoms. * Legionella antigen pending * Started IV Metoclopramide 10 mg PRN on 12/06/20 3. History of Recurrent Infections Patient has had two episodes of CAP within the last 1-2 years as well as a history of viral meningitis and frequent childhood infections. He also has a sibling with IgA deficiency. Due to the patient's personal and family history, it is reasonable to obtain immunoglobulin levels at this time to investigate for CVID or another immunodeficiency. * Immunoglobulin levels. IgG 615 (mildly low), IgA (193) and IgM (97.7) within normal range * SPEP pending 3. Hypophosphatemia * Resolved. Phosphate 1.1 on admission. Repleted to 2.5 Code Status: Full Code F/E/N: Regular Diet VTE PPx: Lovenox Disposition: Medical Floor Laterality: unspecified laterality Qualified Code(s): J18.9 - Pneumonia, unspecified organism Admission and Anticipated Discharge Date Admission Date: December 03, 2020 Supervising Attestation I personally examined the patient and verified all yost points of history and exam, discussed case, and agree with decision making with Dr Uzma Smyth MS4 Still with fevers. Otherwise about the same, but he does feel a little less nauseatedwas able to eat a little better. Updated as far as working differentials and next steps in plan, patient had mother on speaker phone, answered most of their questions to the best of my ability and to their satisfaction. Pulmonary input appreciated. Records received from [facility] and reviewed. Vitals noted, in general he is awake and alert pleasant no distress but does appear quite fatigued. HEENT normocephalic atraumatic mucous membranes moist. Breathing unlabored no accessory muscle use good effort. breathing unlabored no accessory muscles good effort skin no rashes no pallor or icterus. Community-acquired pneumonia w sepsis present on admissionfailed outpatient treatmentstill spiking temps, concern on legionella (pulmonary resent antigen) vs possible gram negative resistant to beta lactams versus other. Did have concern about IgG deficiencybut levels were not low enough to really suggest this is a true diagnosis, SPEP sent, but starting to doubt that immune deficiency is at play. changed to levaquin. continue supportive care. Reglan helping with nausea. Anticipate bronchoscopyhopefully washings may at least yield some insight on infectious etiology. It is interesting that his stay in [place] appears almost identical, and was almost exactly a year ago, but I am hard pressed to find seasonal or environmental causes for this presentation. We will continue to review. otherwise as above Subjective Patient continues to feel poor today. He notes decreased nausea since switching antibiotics and he has not had any episodes of vomiting since we met yesterday morning. He was able to tolerate fruit and crackers last night for dinner but he did not have anything to eat for breakfast today. He states that he is still having fluctuating shortness or breath. He says that he feels like he occasionally "misses" a breath. He notes increased cough since yesterday that is mildly productive with non-bloody phlegm. He notes that he was started on a nasal cannula overnight (2 L/min) but he did not request oxygen or notice any significant difference in his breathing after starting oxygen. He removed the nasal canula this morning. Review of Systems Constitutional: + fever, + fatigue, + weakness and + anorexia; no chills and no body aches Eyes: no problem reported Ear, Nose, Mouth, Throat: no problem reported Respiratory: as per Subjective / HPI Cardiovascular: as per Subjective / HPI Gastrointestinal: no abdominal pain, no cramping and no change in stools Genitourinary: no dysuria and no difficulty urinating Neurologic: no problem reported Psychiatric: no problem reported Physical Exam Constitutional: + ill appearing; no acute distress Eyes: PERRL, conjunctivae normal, anicteric sclerae ENMT: external ear and nose normal, oropharynx normal Neck: normal visual inspection Respiratory: + labored breathing; no cough Auscultation: + crackles (mild. right lower lobe); no diminished lung sounds, no rhonchi, no wheezes and no bronchial breath sounds Cardiovascular: RRR, no murmur, no edema Gastrointestinal (Abdomen): normal bowel sounds, soft, nontender, no hepatosplenomegaly Skin: no rashes, warm and dry Psychiatric: A+Ox3, euthymic affect Results & Data ([facility]) Vital Signs (Past 12 Hours) Vital Signs Temp Pulse Resp BP Pulse Ox 12/07/20 07:49 37.7 C H 92 H 16 121/82 95 12/06/20 22:57 39.2 C H 115 H 18 115/71 90
[2020-12-07 10:26] LABS: C Reactive Protein 39.2 mg/dl (0-0.29)
--- NOTE | 2020-12-07 10:58 | Pulmonary Consultation ---
Date of Consultation December 07, 2020 Assessment & Plan (1) Pneumonia: CT chest 12/07/2020 personally reviewed: Diffuse rhonchorous opacities appreciated bilaterally upper and lower lobes minimal reticulation in the lower lobes and consolidative process in the left lower lobe. Minimal right hilar lymphadenopathy likely reactive. --Multilobar pneumonia Diffuse groundglass opacities along with consolidative process bilateral lower lobes Nasal MRSA negative x2 COVID-19 PCR negative, influenza A/B negative x3 ESR 127, CRP 39, procalcitonin 0.33 --> 0.78 Blood culture negative to date Urine Legionella negative Opacities with consolidative process in the lower lobes Differential includes atypical pneumonia as well as a pressure-like infection li ke PJP. There is no eosinophilia or lymphopenia appreciated on the CBC VAPing associated lung injury can also look the same way. --Right lower lobe pulmonary nodule 6 mm Likely component of consolidative process Repeat CT chest in 3 months Plan: Continue with levofloxacin Follow-up sputum culture. Follow Beta-D glucan. Mycoplasma IgM Recommend doing an HIV testing on the patient VAPing induced lung injury can present the same way. Given the recent change of antibiotics to levofloxacin. I will give the patient on the 24 hours. Plan to have bronchoscopy done on Saturday. Patient as well as patient's mother who was on the phone at the time of examination is agreeable to the procedure. Risk and benefits of the procedure explained to them in depth. All question inquiries were answered in depth Please note the above document was generated using voice recognition software. It may contain grammatical, syntax or spelling errors.Any formal questions or concerns about the content, text or information contained within the body of this dictation should be directly addressed to the provider for clarification. Laterality: bilateral Lung location: lower lobe of lung Pneumonia type: due to unspecified organism Qualified Code(s): J18.9 - Pneu monia, unspecified organism (2) Abnormal chest CT: (3) Pulmonary nodule: History of Present Illness Attending Physician: Ryan Fenton DO History of Present Illness 25-year-old male was admitted to the hospital because of fever and bilateral opacities. He was given azithromycin and amoxicillin on 11/30 but because of the persistent symptoms he was admitted on 12/02/2020. Pulmonary consulted because he still spiking fever even though he completed the course of antibiotics At the time of examination patient denied any chest pain. He still says that he feels the same. Having fevers on and off. Does have dry cough. Is not able to bring up any phlegm. Denies any blurry vision. No dysuria. Patient did have diarrhea but that was after he was given antibiotics. It has resolved. There is family history of hypercoagulable state with anticardiolipin antibody and sister. There is also immunoglobulin deficiency in the family. Patient personally has never been checked for it. Social history: Patient occasionally does vaping, last time he did was 3 weeks ago approximately, marijuana also social, social drinking. Denies any other illicit drug use Has 4 dogs and 2 cats at his home. No birds or poultry nearby. Denies any recent travel history There is no personal or family history of asthma Allergies Allergy/AdvReac Type Severity Reaction Status Date / Time No Known Allergies Allergy Verified 12/03/20 21:29 Home Medications Medication Instructions Recorded Confirmed Type albuterol sulfate 2 inh INHALATION Q4H PRN #8.5 g 11/30/20 12/03/20 Rx amoxicillin 1,000 mg PO Q8H 5 Days #30 cap 11/30/20 12/03/20 Rx azithromycin See Rx Instructions .ROUTE 11/30/20 12/03/20 Rx .COMPLEX #6 tab benzonatate [Tessalon Perles] 100 mg PO Q6H PRN #20 cap 11/30/20 12/03/20 Rx Patient History Medical History Community acquired pneumonia Surgical History History of tonsillectomy and adenoidectomy History of wisdom tooth extraction Family History Other Hypertension IgG deficiency Social History Smoking Status: Never smoker Second Hand Exposure: No; Hx Alcohol Use: Yes Alcohol type: beer Hx Substance Use: No Preferred Language: Maltese Communication Ability: Effective Child Development Associate Teacher Required: No Beliefs That Will Affect Care: None Current Living Situation: Alone Feels Safe at Home: Yes Assistive Devices: Glasses Review of Systems Review of Systems: All systems reviewed & are unremarkable except as noted in HPI & below Physical Exam Physical Exam: Constitutional: No acute distress HEENT: EOMI, PERRLA Respiratory system: Decreased air entry bilaterally, no wheeze, no rhonchi, positive crackles bilateral lower lobes CVS: S1-S2 positive, no murmurs or gallops, tachycardia Abdomen: Soft, nontender, nondistended, positive bowel sounds x4 Extremities: +2 pulses bilaterally radialis/ dorsalis pedis, no cyanosis, no edema Neuro: Awake alert oriented x3 Psych: Normal mood and affect G/U: No [place] Skin: no rashes, warm and dry Lymphatic: no cervical or axillary lymphadenopathy Results & Data Results & Data ([facility]) Vital Signs (Past 12 Hours) Vital Signs Temp Pulse Resp BP Pulse Ox 12/07/20 07:49 37.7 C H 92 H 16 121/82 95 12/06/20 22:57 39.2 C H 115 H 18 115/71 90 12/07/20 05:51 12/06/20 06:17 PG Care Time/CCT Total # of Minutes Spent Total Time Spent with Patient: Total time spent is greater than 50% in coordination of care (as documented) at patient's floor/unit and/or counseling patient: Coding Level of Care Code 66302 Inpt Consult Level 4 Diagnoses Pneumonia J18.9 Laterality: bilateral Lung location: lower lobe of lung Pneumonia type: due to unspecified organism Abnormal chest CT R93.89 Pulmonary nodule R91.1
[2020-12-07] MEDS: PROMETHAZINE HCL 6.25 MG in SODIUM CHLORIDE 0.9% 50 ML IV PRN ×2 (12:35→20:21)
[2020-12-07] MEDS: ACETAMINOPHEN 325 MG TAB PO PRN ×2 (14:58→23:42)
--- NOTE | 2020-12-07 20:29 | Billing Data ---
Date of Service December 07, 2020 Coding Level of Care Code 78707 Subseq Hosp Care Lvl 3
[2020-12-08 07:13] LABS: Basophils # (auto) 0.01 K/uL (0-0.2); Basophils % (auto) 0.1 %; Eosinophils # (auto) 0.02 K/uL (0-0.5); Eosinophils % (auto) 0.1 %; Hematocrit (blood only) 39.4 % (42-52); Hemoglobin 13.7 g/dL (14.0-18.0); Immature Granulocytes # (auto) 0.09 K/uL (0.00-0.02); Immature Granulocytes % (auto) 0.7 %; Lymphocytes # (auto) 1.29 K/uL (1.2-3.4); Lymphocytes % (auto) 9.4 %; Mean Corpuscular Hemoglobin 30.7 pg (25-34); Mean Corpuscular Hgb Conc 34.8 g/dL (32-36); Mean Corpuscular Volume 88.3 fL (80-100); Mean Platelet Volume 8.7 fL (7.4-10.4); Monocytes # (auto) 0.33 K/uL (0.11-0.59); Monocytes % (auto) 2.4 %; Neutrophils # (auto) 11.92 K/uL (1.4-6.5); Neutrophils % (auto) 87.3 %; Platelet Count 596 K/uL (130-400); RDW Coefficient of Variation 13.2 % (11.5-14.5); RDW Standard Deviation 43.1 fL (36.4-46.3); Red Blood Count 4.46 M/uL (4.7-6.1); White Blood Count 13.66 K/uL (4.8-10.8)
[2020-12-08] MEDS: PROMETHAZINE HCL 6.25 MG in SODIUM CHLORIDE 0.9% 50 ML IV PRN ×2 (08:43→18:22)
[2020-12-08] MEDS: levoFLOXacin/D5W 750 MG/150 ML BAG IV SCH (09:12)
[2020-12-08] MEDS: FAMOTIDINE 20 MG TAB PO SCH ×2 (09:13→21:32)
[2020-12-08] MEDS: ENOXAPARIN INJ 40 MG/0.4 ML SYR SQ SCH (09:13)
[2020-12-08] MEDS: IBUPROFEN 600 MG TAB PO PRN ×2 (10:53→22:27)
[2020-12-08] MEDS: METOCLOPRAMIDE HCL INJ 5 MG/ML 2 ML VIAL IV PRN (12:46)
--- NOTE | 2020-12-08 13:21 | Medical Student Progress Note ---
Date of Service December 08, 2020 Assessment & Plan (1) Community acquired pneumonia: Js Phillips is a 25-year-old male with a PMHx of community acquired pneumonia (2019) and viral meningitis who presented to [facility] emergency department on 11/30/20 with a 1-day history of cough, shortness of breath, and fever. CXR revealed bibasilar opacities suggestive of pneumonia and patient was prescribed azithromycin and amoxicillin for outpatient treatment of community acquired pneumonia. However, he returned to the emergency department on 12/02/20 with nausea, vomiting, dehydration, and post-tussive emesis at which time he was admitted for inpatient treatment of community acquired pneumonia. 1. Community Acquired Pneumonia * CXR 12/03/20: moderate bilateral airspace opacities suggestive of pneumonia that had progressed compared to CXR on 12/01/20. * IV Ceftriaxone + Azithromycin initiated 12/03/20. Discontinued 12/06/20 due to insufficient clinical improvement and persistent fever. Initiated IV Levofloxacin on 12/06/20. Patient has been on multiple beta lactam antibiotics without improvement so change to Levofloxacin may cover potential resistant bacteria such as H. influenza Levofloxacin will provide legionella coverage as well as legionella antigen is still pending. * MRSA swab negative on admission. Repeat swab 12/07/20 also negative * Covid swab negative on admission. Repeat covid swab negative on 12/06/20. Influenza and RSV negative * Blood cultures negative 08/30 * Strep panel pending. * Procalcitonin within normal limits on admission. Repeat level on 12/07/20 elevated at 0.78 * Legionella antigen negative. Repeat Legionella antigen pending. Normal LFTs. Prominent GI symptoms but they seem to be related to antibiotic-induced nausea. * Tessalon anti-tussive. Zofran, Promethazine, and famotidine PRN for GI symptoms. IV Metoclopramide started 12/06/20 due to persistent nausea. * Immunoglobulin levels: IgG 615 (mildly low), IgA (193) and IgM (97.7) within normal range * Chest CT 12/07/20: Bilateral peripheral predominant ground glass opacities with bibasilar patchy consolidation, suggestive of multifocal PNA. Mild mediastinal and hilar adenopathy, likely reactive. Trace pleural effusions bilaterally * ESR (127) and CRP (39.2) both elevated * NT-proBNP normal (131) * Mycoplasma IgM pending * HIV screening negative. Verbal consent obtained * Pulmonology consult appreciated. Bronchoscopy scheduled for tomorrow, 12/09/20, for further evaluation * Patient endorses vaping e-cigarettes. Last use >1 month ago. Patient thinks he began using e-cigarettes within the past year (after 2019 admission for PNA) but timeline is not definitive. Therefore, vaping-induced lung injury cannot be ruled out as the cause of the patient's current presentation or his similar presentation in November 2019. Recommended discontinuation of vaping 2. Nausea * Legionella antigen pending * Started IV Metoclopramide 10 mg PRN on 12/06/20 * Zofran Q6H * Initiated acid suppression with Pantoprazole 40 mg PO BID and Famotidine 20 mg PO BID 3. History of Recurrent Infections Patient has had two episodes of CAP within the last 1-2 years as well as a history of viral meningitis and frequent childhood infections. He also has a sibling with IgA deficiency. Due to the patient's personal and family history, it is reasonable to obtain immunoglobulin levels at this time to investigate for CVID or another immunodeficiency. * Immunoglobulin levels. IgG 615 (mildly low), IgA (193) and IgM (97.7) within normal range * SPEP pending * Qake-[id number] pending 3. Hypophosphatemia * Resolved. Phosphate 1.1 on admission. Repleted to 2.5 Code Status: Full Code F/E/N: NPO after midnight for bronchoscopy VTE PPx: Lovenox Disposition: Medical Floor Laterality: unspecified laterality Qualified Code(s): J18.9 - Pneumonia, unspecified organism Admission and Anticipated Discharge Date Admission Date: December 03, 2020 Supervising Attestation I personally examined the patient and verified all yost points of history and exam, discussed case, and agree with decision making with Dr Uzma Smyth MS4 overall basically feeling the same, still nausea. not as bad as a few days ago, but still fairly bothersome. ongoing fevers. Vitals noted, in general he is awake and alert pleasant no distress but does appear quite fatigued. HEENT normocephalic atraumatic mucous membranes moist. Breathing unlabored no accessory muscle use good effort. breathing unlabored no accessory muscles good effort skin no rashes no pallor or icterus. Community-acquired pneumonia w sepsis present on admissionfailed outpatient treatmentstill spiking temps, concern on legionella (pulmonary resent antigen) vs possible gram negative resistant to beta lactams versus other. Did have concern about IgG deficiencybut levels were not low enough to really suggest this is a true diagnosis, SPEP sent, but now doubt that immune deficiency is at play. changed to levaquin - day 3 today. continue supportive care. Reglan helping with nausea some - escalate anti-emetic care. Anticipate bronchoscopy tomorrowhopefully washings may at least yield some insight on infectious etiology. if no overt findings on bronch to dictate treatment otherwise - steroids after scope. advised against vaping entirely. It is interesting that his stay in [place] appears almost identical, and was almost exactly a year ago, but I am hard pressed to find seasonal or environmental causes for this presentation. We will continue to review. otherwise as above Subjective Patient says that he is feeling slightly better today. He feels much less nauseous and he has not vomited within the last day. He was able to tolerate fruit and crackers for lunch and dinner yesterday but he has not eaten breakfast yet this morning. His appetite has been gradually improving. However, the patient still endorses fatigue and fever without chills. He remains dyspneic but he says that his breathing has improved since starting nasal cannula at 2 L/min last night. His cough remains mild and slightly productive. Review of Systems Constitutional: as per Subjective / HPI Eyes: no problem reported Ear, Nose, Mouth, Throat: no problem reported Respiratory: as per Subjective / HPI Cardiovascular: + chest pain (with deep inspiration ); no palpitations Gastrointestinal: no abdominal pain and no change in stools Genitourinary: no problem reported Musculoskeletal: as per Subjective / HPI Neurologic: no problem reported Psychiatric: no problem reported Results & Data ([facility]) Vital Signs (Past 12 Hours) Vital Signs Temp Pulse Resp BP Pulse Ox 12/08/20 12:51 37.3 C 101 H 91 12/08/20 10:49 39.4 C H 116 H 90 12/08/20 07:47 109 H 91 12/08/20 07:29 38.6 C H 116 H 22 104/62 85 L
[2020-12-08] MEDS: ONDANSETRON INJ 2 MG/ML 2 ML VIAL IV SCH ×2 (16:59→21:31)
--- NOTE | 2020-12-08 17:23 | Pulmonology Progress Note ---
Date of Service December 08, 2020 Assessment & Plan (1) Pneumonia: CT chest 12/07/2020 personally reviewed: Diffuse rhonchorous opacities appreciated bilaterally upper and lower lobes minimal reticulation in the lower lobes and consolidative process in the left lower lobe. Minimal right hilar lymphadenopathy likely reactive. --Multilobar pneumonia Diffuse groundglass opacities along with consolidative process bilateral lower lobes Nasal MRSA negative x2 COVID-19 PCR negative, influenza A/B negative x3 ESR 127, CRP 39, procalcitonin 0.33 --> 0.78 Blood culture negative to date Urine Legionella negative HIV negative Opacities with consolidative process in the lower lobes Differential includes atypical pneumonia as well as a pressure-like infection like PJP. There is no eosinophilia or lymphopenia appreciated on the CBC VAPing associated lung injury can also look the same way. Patient apparently had similar episode back in [place] almost a year ago. He was doing vaping at that time as well but not this frequent right as he is right now. --Right lower lobe pulmonary nodule 6 mm Likely component of consolidative process Repeat CT chest in 3 months Plan: Continue with levofloxacin Follow-up sputum culture. Follow Beta-D glucan. Mycoplasma IgM VAPing induced lung injury can present the same way. Plan to have bronchoscopy tomorrow. After bronchoscopy will start the patient on steroids to see if he benefits from it. Please note the above document was generated using voice recognition software. It may contain grammatical, syntax or spelling errors.Any formal questions or concerns about the content, text or information contained within the body of this dictation should be directly addressed to the provider for clarification. Laterality: bilateral Lung location: lower lobe of lung Pneumonia type: due to unspecified organism Qualified Code(s): J18.9 - Pneumonia, unspecified organism (2) Abnormal chest CT: (3) Pulmonary nodule: Admission and Anticipated Discharge Date Admission Date: December 03, 2020 Subjective Patient seen and examined at bedside. No acute distress. Patient is saying that he is having more nausea compared to yesterday. Breathing is still the same. Bringing up occasional phlegm. Denies any hemoptysis. No chest pain, no headache. Review of Systems Review of Systems: All systems reviewed & are unremarkable except as noted in Subjective Physical Exam Physical Exam: Constitutional: No acute distress HEENT: EOMI, PERRLA Respiratory system: Decreased air entry bilaterally, no wheeze, no rhonchi, positive crackles bilateral lower lobes CVS: S1-S2 positive, no murmurs or gallops, positive gynecomastia Abdomen: Soft, nontender, nondistended, positive bowel sounds x4 Extremities: +2 pulses bilaterally radialis/ dorsalis pedis, no cyanosis, no edema Neuro: Awake alert oriented x3 Psych: Normal mood and affect G/U: No Nevarez Skin: no rashes, warm and dry Lymphatic: no cervical or axillary lymphadenopathy Results & Data Results & [facility]) Vital Signs (Past 12 Hours) Vital Signs Temp Pulse Resp BP Pulse Ox 12/08/20 15:40 37.1 C 89 16 120/75 92 12/08/20 12:51 37.3 C 101 H 91 12/08/20 10:49 39.4 C H 116 H 90 12/08/20 07:47 109 H 91 12/08/20 07:29 38.6 C H 116 H 22 104/62 85 L 12/08/20 06:48 12/06/20 06:17 PG Care Time/CCT Total # of Minutes Spent Total Time Spent with Patient: Total time spent is greater than 50% in c oordination of care (as documented) at patient's floor/unit and/or counseling patient: Coding Level of Care Code 20014 Subseq Hosp Care Lvl 3 Diagnoses Pneumonia J18.9 Laterality: bilateral Lung location: lower lobe of lung Pneumonia type: due to unspecified organism Abnormal chest CT R93.89 Pulmonary nodule R91.1
--- NOTE | 2020-12-08 18:20 | Billing Data ---
Date of Service December 08, 2020 Coding Level of Care Code 23617 Subseq Hosp Care Lvl 3
[2020-12-08 18:46] LABS: Pneumococcal IgG Type 1 2.5; Pneumococcal IgG Type 12 (12F) 0.7; Pneumococcal IgG Type 14 <0.3; Pneumococcal IgG Type 23 (23F) 0.4; Pneumococcal IgG Type 26 (6B) <0.3; Pneumococcal IgG Type 4 0.3; Pneumococcal IgG Type 5 1.2; Pneumococcal IgG Type 51 (7F) 0.3; Pneumococcal IgG Type 56 (18C) 0.9; Pneumococcal IgG Type 68 (9V) <0.3; Pneumococcal IgG Type 8 <0.3; Pneumococcal IgG Type 9 (9N) <0.3
[2020-12-08] MEDS: PANTOprazole 40 MG TAB PO SCH (21:32)
[2020-12-09] MEDS: ONDANSETRON INJ 2 MG/ML 2 ML VIAL IV SCH ×4 (05:44→22:07)
[2020-12-09 05:52] LABS: Basophils # (auto) 0.01 K/uL (0-0.2); Basophils % (auto) 0.1 %; Eosinophils # (auto) 0.04 K/uL (0-0.5); Eosinophils % (auto) 0.3 %; Hematocrit (blood only) 39.5 % (42-52); Hemoglobin 13.6 g/dL (14.0-18.0); Immature Granulocytes # (auto) 0.15 K/uL (0.00-0.02); Lymphocytes # (auto) 1.38 K/uL (1.2-3.4); Lymphocytes % (auto) 9.1 %; Mean Corpuscular Hemoglobin 30.7 pg (25-34); Mean Corpuscular Hgb Conc 34.4 g/dL (32-36); Mean Corpuscular Volume 89.2 fL (80-100); Mean Platelet Volume 8.7 fL (7.4-10.4); Monocytes # (auto) 0.26 K/uL (0.11-0.59); Monocytes % (auto) 1.7 %; Neutrophils # (auto) 13.38 K/uL (1.4-6.5); Neutrophils % (auto) 87.8 %; Platelet Count 564 K/uL (130-400); RDW Coefficient of Variation 13.2 % (11.5-14.5); RDW Standard Deviation 43.4 fL (36.4-46.3); Red Blood Count 4.43 M/uL (4.7-6.1); White Blood Count 15.22 K/uL (4.8-10.8)
[2020-12-09 06:36] LABS: BUN Creatinine Ratio 14.7 (10-20); Calcium 9.8 mg/dl (8.5-10.1); Creatinine Clr Calc Pharmacy 135.6 ml/min; Est GFR (African American) 126.6 ml/min; Est GFR (Non-African American) 109.3 ml/min; Potassium 3.8 mmol/L (3.5-5.1)
[2020-12-09] MEDS: PANTOprazole 40 MG TAB PO SCH ×2 (08:27→20:01)
[2020-12-09] MEDS: levoFLOXacin/D5W 750 MG/150 ML BAG IV SCH (08:27)
[2020-12-09] MEDS: FAMOTIDINE 20 MG TAB PO SCH ×2 (08:27→20:01)
[2020-12-09] MEDS: ENOXAPARIN INJ 40 MG/0.4 ML SYR SQ SCH (08:28)
--- NOTE | 2020-12-09 09:01 | Pulmonology Progress Note ---
Date of Service December 09, 2020 Assessment & Plan (1) Pneumonia: CT chest 12/07/2020 personally reviewed: Diffuse rhonchorous opacities appreciated bilaterally upper and lower lobes minimal reticulation in the lower lobes and consolidative process in the left lower lobe. Minimal right hilar lymphadenopathy likely reactive. --Multilobar pneumonia Diffuse groundglass opacities along with consolidative process bilateral lower lobes Nasal MRSA negative x2 COVID-19 PCR negative, influenza A/B negative x3 ESR 127, CRP 39, procalcitonin 0.33 --> 0.78 Blood culture negative to date Urine Legionella negative HIV negative Opacities with consolidative process in the lower lobes Differential includes atypical pneumonia as well as a pressure-like infection like PJP. There is no eosinophilia or lymphopenia appreciated on the CBC VAPing associated lung injury can also look the same way. Patient apparently had similar episode back in [place] almost a year ago. He was doing vaping at that time as well but not this frequent right as he is right now. --Right lower lobe pulmonary nodule 6 mm Likely component of consolidative process Repeat CT chest in 3 months Plan: Continue with levofloxacin Follow-up sputum culture. Follow Beta-D glucan. Mycoplasma IgM VAPing induced lung injury can present the same way. For bronchoscopy today After bronchoscopy will start the patient on steroids to see if he benefits from it. Please note the above document was generated using voice recognition software. It may contain grammatical, syntax or spelling errors.Any formal questions or concerns about the content, text or information contained within the body of this dictation should be directly addressed to the provider for clarification. Laterality: bilateral Lung location: lower lobe of lung Pneumonia type: due to unspecified organism Qualified Code(s): J18.9 - Pneumonia, unspecified organism (2) Abnormal chest CT: (3) Pulmonary nodule: Admission and Anticipated Discharge Date Admission Date: December 03, 2020 Subjective Patient seen and examined at bedside. No acute distress, no dizziness overnight. Nausea is improved. Still complains of shortness of breath. The patient to bring up phlegm. Denies any chest pain. No headache, no dizziness. Review of Systems Review of Systems: All systems reviewed & are unremarkable except as noted in Subjective Physical Exam Physical Exam: Constitutional: No acute distress HEENT: EOMI, PERRLA Respiratory system: Decreased air entry bilaterally, no wheeze, no rhonchi, positive crackles bilateral lower lobes CVS: S1-S2 positive, no murmurs or gallops, positive gynecomastia Abdomen: Soft, nontender, nondistended, positive bowel sounds x4 Extremities: +2 pulses bilaterally radialis/ dorsalis pedis, no cyanosis, no edema Neuro: Awake alert oriented x3 Psych: Normal mood and affect G/U: No Nevarez Skin: no rashes, warm and dry Lymphatic: no cervical or axillary lymphadenopathy Results & Data Results & Data ([facility]) Vital Signs (Past 12 Hours) Vital Signs Temp Pulse Resp BP Pulse Ox 12/09/20 06:07 37.7 C H 97 H 16 100/65 90 12/08/20 23:47 38 C H 110 H 18 92 12/08/20 22:25 92 12/08/20 22:21 39.3 C H 119 H 18 104/61 88 L 12/09/20 05:40 12/09/20 05:40 PG Care Time/CCT Total # of Minutes Spent Total Time Spent with Patient: Total time spent is greater than 50% in coordination of care (as documented) at patient's floor/unit and/or counseling patient: Coding Level of Care Code 05608 Subseq Hosp Care Lvl 3 Diagnoses Pneumonia J18.9 Laterality: bilateral Lung location: lower lobe of lung Pneumonia type: due to unspecified organism Abnormal chest CT R93.89 Pulmonary nodule R91.1
[2020-12-09] MEDS: METOCLOPRAMIDE HCL INJ 5 MG/ML 2 ML VIAL IV PRN (10:09)
--- NOTE | 2020-12-09 10:21 | Pre Anesthesia Assessment ---
Date of Service December 09, 2020 Pre Sedation Assessment Vital Signs Temp Pulse Pulse Resp BP BP Pulse Ox 12/09/20 06:07 37.7 C H 97 H 16 100/65 90 12/08/20 23:47 38 C H 110 H 18 92 12/08/20 22:25 92 12/08/20 22:21 39.3 C H 119 H 18 104/61 88 L 12/08/20 15:40 37.1 C 89 16 120/75 92 12/08/20 12:51 37.3 C 101 H 91 12/08/20 10:49 39.4 C H 116 H 90 Cardiovascular RRR, no murmur, no edema Respiratory Additional Comments: + crackles b/l LL Pre-Sedation Airway Assessment Smoking Status: Never smoker Hx Sleep Apnea: No Short, Thick Neck: No Thyromental Distance: > or= 3.5 Finger Breadths Oral Cavity: + WNL Mallampati Class: I ASA: ASA2 NPO Status Date of Last Intake of Fluids: 12/09/20 Time of Last Intake of Fluids: 08:00 Last Oral Intake of Fluids Comment: sips with medications this am Date of Last Intake of Solid Food: 12/08/20 Time of Last Intake of Solid Foods: 08:00 Last Intake of Solids Comment: states ate breakfast but has been too nauseated to eat Procedure Planning Contraindications for Sedation: none Current Medications Reviewed: Yes Notes The planned sedation has been discussed with the patient. Informed Consent was obtained. I have identified the patient, determined the appropriateness of sedation and have assessed the patient immediately prior to the procedure. All medicine(s) and interventions are by my order.
[2020-12-09] MEDS ORDERED: MIDAZOLAM HCL 5 MG/ML 1 ML VIAL ONE ×2 (10:27)
[2020-12-09] MEDS ORDERED: fentaNYL citrate 100 MCG/2 ML VIAL ONE (10:28)
--- NOTE | 2020-12-09 11:11 | Procedure Note ---
Procedure Note: Bronchoscopy Procedure PREOPERATIVE DIAGNOSIS: Multilobar pneumonia POSTOPERATIVE DIAGNOSIS: Multilobar pneumonia PROCEDURE PERFORMED: Flexible fiberoptic bronchoscopy with BAL and brushings COMPLICATIONS: None. INDICATION: Multilobar pneumonia PROCEDURE: After obtaining an informed consent, the patient was brought to the Bronchoscopy Suite. The patient had appropriate oxygen, blood pressure, heart rate, and respiratory rate monitoring applied and monitored continuously throughout the procedure. Supplemental oxygen via nasal cannula as per nursing records was applied to the nasopharynx with adequate saturations achieved. Topical anesthesia with nebulized 1% lidocaine was achieved. Subsequent to this, the patient was premedicated with 6 mg of midazolam and 125 mcg of fentanyl. Upper Airway: The oropharynx and larynx were well visualized and showed normal mucosa. There was normal vocal cord motion without masses or lesions. Additional topical anesthesia with 1% lidocaine was applied to the trachea and kenia. The trachea appeared normal.The bronchoscope was then advanced through the kenia, which was sharp. The scope was then advanced into the right main stem and each segment, subsegement in the right upper lobe, right middle lobe and right lower lobe were visualized. There were minimal amount of clear secretion. There were no other findings including evidence of mass, anatomic distortions, or hemorrhage. The bronchoscope was subsequently withdrawn and advanced into the left mainstem. Again, each segment and subsegment was well visualized. No specific masses or other lesions were identified throughout the tracheobronchial tree on the left. There were minimal amount of clear secretion which were suctioned out. The bronchoscope was then wedged in the right middle lobe and bronchoalveolar lavage samples were obtained. 60 ml of saline was instilled and 20 ml of fluid was aspirated back.The bronchoscope was withdrawn and the area was suctioned clear. The bronchoscope was then wedged in the right lower lobe and BAL samples were obtained. 60 mL of saline was instilled and 20 mL aspirated back. The bronchoscope was then re-advanced into the right lower lobe and to brushings were obtained. No bleeding was appreciated post brushings. The bronchoscope was then withdrawn to the mainstem. The area was suctioned clear. The bronchoscope was then withdrawn. The patient tolerated the procedure well without evidence of desaturation or complications. Bronchoalveolar lavage samples were sent for cell count, Gram stain and bacterial culture, AFB culture and smear, fungal culture and smear, PJP and cyt ology. Recommendations: Follow-up cytology, culture and differential Follow-up chest x-ray
--- NOTE | 2020-12-09 11:49 | Post Anesthesia Assessment ---
Date of Service December 09, 2020 Post Sedation Assessment Vital Signs Temp Pulse Pulse Pulse Resp BP BP 12/09/20 11:40 127 H 20 118/67 12/09/20 11:35 122 H 20 107/66 12/09/20 11:30 123 H 20 121/69 12/09/20 11:25 127 H 20 120/62 12/09/20 11:20 127 H 24 116/62 12/09/20 11:15 132 H 24 125/73 12/09/20 11:10 121 H 24 128/62 12/09/20 11:05 137 H 24 129/81 12/09/20 11:00 135 H 24 107/73 12/09/20 10:55 143 H 24 147/77 H 12/09/20 10:50 139 H 24 122/68 12/09/20 10:45 160 H 24 141/80 H 12/09/20 10:40 117 H 20 123/68 12/09/20 10:35 109 H 20 111/78 12/09/20 10:25 109 H 20 106/75 12/09/20 06:07 37.7 C H 97 H 16 100/65 12/08/20 23:47 38 C H 110 H 18 12/08/20 22:25 12/08/20 22:21 39.3 C H 119 H 18 104/61 12/08/20 15:40 37.1 C 89 16 120/75 12/08/20 12:51 37.3 C 101 H Pulse Ox 12/09/20 11:40 91 12/09/20 11:35 93 12/09/20 11:30 91 12/09/20 11:25 91 12/09/20 11:20 91 12/09/20 11:15 93 12/09/20 11:10 93 12/09/20 11:05 91 12/09/20 11:00 91 12/09/20 10:55 91 12/09/20 10:50 91 12/09/20 10:45 91 12/09/20 10:40 90 12/09/20 10:35 94 12/09/20 10:25 95 12/09/20 06:07 90 12/08/20 23:47 92 12/08/20 22:25 92 12/08/20 22:21 88 L 12/08/20 15:40 92 12/08/20 12:51 91 Recovery Score Activity: Moves 4 extremities Respiration: Deep Breath/Cough Circulation: +/-20% PreAnes Value Consciousness: Fully Awake Oxygen Saturation: O2 needed for >90% Post Anesthesia Score: 9 Discharge Sedation Level of Care: Fast Track Phase II Post Sedation Plan On clinical assessment, the patient appears to have tolerated the sedation without complications. Patient is recovering as anticipated. Patient will continue to be monitored by nursing and may be discharged when sedation discharge criteria are met per below protocol. Upon Completions of procedure up to 15 minutes continue every 5 minute vital signs and the P.A.R. score; then discharge to a Phase I or Fast Track to Phase II per the following guidelines: * Discharge Patient to appropriate Phase II area if PAR is 8 or greater or return to pre- procedure baseline. The post - procedure orders will be as directed. * If PAR score is less than 8 or not return to pre-procedure baseline then patient will follow Phase I monitoring till PAR is reached for Phase II. The Phase I may be done in procedure room or may call to secure a Phase I area. * If naloxone or flumazenil are used for reversal, hold in Phase I for continued monitoring from when last reversal dose was given for a minimum of 60 minutes or longer pending the nurse and/or physician discretion of patient condition before discharge to Phase II. Please call the Sedation Physician to re-evaluate and complete post-note for discharge to Phase II area. Do NOT discharge from procedure sedation or Phase 1 until post- sedation evaluation note is complete by procedure /sedation MD Sedation Discharge Instructions to be given to the patient at discharge to home.
--- NOTE | 2020-12-09 11:59 | XRay Report ---
XR chest 1V portable CLINICAL HISTORY: Chest x-ray status post bronchoscopy COMPARISON STUDY: 12/03/2020 FINDINGS: The cardiac and mediastinal contours remain stable. There are persistent bilateral pulmonar y airspace opacities. There is no pneumothorax status post bronchoscopy. There are no significant ple ural effusions.[ IMPRESSION: 1. Bilateral pulmonary airspace opacities 2. No evidence of pneumothorax status post bronchoscopy ACT 112: Negative or not required by law. Electronically signed by: Alvino Alexander M.D. 12/09/2020 11:58 AM
[2020-12-09 13:56] LABS: Fluid Mono/Macrophage 39 %; Lymphocyte Body Fluid Man 6 %; Neutrophil Body Fluid Man 51 %
[2020-12-09 13:57] LABS: Basophil Body Fluid Man 1 %; Eosinophil Body Fluid Man 3 %
[2020-12-09 14:03] LABS: Fluid Mono/Macrophage 38 %; Lymphocyte Body Fluid Man 18 %; Neutrophil Body Fluid Man 43 %
[2020-12-09 14:04] LABS: Basophil Body Fluid Man 1 %; Eosinophil Body Fluid Man 0 %
[2020-12-09] MEDS: ACETAMINOPHEN 325 MG TAB PO PRN (15:44)
[2020-12-09] MEDS ORDERED: SODIUM CHLORIDE 0.9% 1000ML 1,000 ML IV ONE (16:45)
[2020-12-09] MEDS ORDERED: methylPREDNISolone 80 MG in SYRINGE 0 ML IV STA (17:16)
--- NOTE | 2020-12-09 17:21 | Medical Student Progress Note ---
Date of Service December 09, 2020 Assessment & Plan (1) Community acquired pneumonia: Js Phillips is a 25-year-old male with a PMHx of community acquired pneumonia (2019) and viral meningitis who presented to [facility] emergency department on 11/30/20 with a 1-day history of cough, shortness of breath, and fever. CXR revealed bibasilar opacities suggestive of pneumonia and patient was prescribed azithromycin and amoxicillin for outpatient treatment of community acquired pneumonia. However, he returned to the emergency department on 12/02/20 with nausea, vomiting, dehydration, and post-tussive emesis at which time he was admitted for inpatient treatment of community acquired pneumonia. 1. Community Acquired Pneumonia * CXR 12/03/20: moderate bilateral airspace opacities suggestive of pneumonia that had progressed compared to CXR on 12/01/20. * IV Ceftriaxone + Azithromycin initiated 12/03/20. Discontinued 12/06/20 due to insufficient clinical improvement and persistent fever. Initiated IV Levofloxacin on 12/06/20. Patient has been on multiple beta lactam antibiotics without improvement so change to Levofloxacin may cover potential resistant bacteria such as H. influenza Levofloxacin will provide legionella coverage as well as legionella antigen is still pending. * MRSA swab negative on admission. Repeat swab 12/07/20 also negative * Covid swab negative on admission. Repeat covid swab negative on 12/06/20. Influenza and RSV negative * Blood cultures negative 08/30 * Strep panel pending. * Procalcitonin within normal limits on admission. Repeat level on 12/07/20 elevated at 0.78 * Legionella antigen negative. Repeat Legionella antigen pending. Normal LFTs. Prominent GI symptoms but they seem to be related to antibiotic-induced nausea. * Tessalon anti-tussive. Zofran, Promethazine, and famotidine PRN for GI symptoms. IV Metoclopramide started 12/06/20 due to persistent nausea. * Immunoglobulin levels: IgG 615 (mildly low), IgA (193) and IgM (97.7) within normal range * Chest CT 12/07/20: Bilateral peripheral predominant ground glass opacities with bibasilar patchy consolidation, suggestive of multifocal PNA. Mild mediastinal and hilar adenopathy, likely reactive. Trace pleural effusions bilaterally * ESR (127) and CRP (39.2) both elevated * NT-proBNP normal (131) * Mycoplasma IgM pending * HIV screening negative. Verbal consent obtained * Pulmonology consult appreciated. Bronchoscopy performed 12/09/20. Awaiting sample results. Initiated IV methylprednisolone on 12/09/20 due to suspicion for potential inflammatory cause of prolonged febrile state and respiratory illness * Patient endorses vaping e-cigarettes. Last use >1 month ago. Patient thinks he began using e-cigarettes within the past year (after 2019 admission for PNA) but timeline is not definitive. Therefore, vaping-induced lung injury cannot be ruled out as the cause of the patient's current presentation or his similar presentation in November 2019. Recommended discontinuation of vaping 2. Nausea * Legionella antigen pending * Started IV Metoclopramide 10 mg PRN on 12/06/20 * Zofran Q6H * Initiated acid suppression with Pantoprazole 40 mg PO BID and Famotidine 20 mg PO BID 3. History of Recurrent Infections Patient has had two episodes of CAP within the last 1-2 years as well as a history of viral meningitis and frequent childhood infections. He also has a sibling with IgA deficiency. Due to the patient's personal and family history, it is reasonable to obtain immunoglobulin levels at this time to investigate for CVID or another immunodeficiency. * Immunoglobulin levels. IgG 615 (mildly low), IgA (193) and IgM (97.7) within normal range * SPEP pending * [id number] pending 4. Tachycardia Alerted by nursing that patient was tachycardic with a HR of 138. Patient appeared comfortable and was not in respiratory distress when examined. * ECG obtained. Sinus tachycardia, otherwise normal. * Patient hypotensive with BP of 86/50 but he remains stable. Most likely due to hypovolemia from minimal PO intake. 1 L normal saline bolus administered * No signs concerning for pulmonary embolism or any other etiologies that warrant further testing at this time. Code Status: Full Code F/E/N: Normal Diet VTE PPx: Lovenox Disposition: Medical Floor Laterality: unspecified laterality Qualified Code(s): J18.9 - Pneumonia, unspecified organism Admission and Anticipated Discharge Date Admission Date: December 03, 2020 Supervising Attestation I personally examined the patient and verified all yost points of history and exam, discussed case, and agree with decision making with Dr Uzma Smyth MS4 Feels about the same after bronchoscopy. Has not eaten anything all day due to being n.p.o. and then no food coming up, does not really feel nauseated but also has not really tried to eat much. Has drank some. Vitals noted, in general he is awake and alert pleasant no distress but does appear quite fatigued. HEENT normocephalic atraumatic mucous membranes moist. Breathing unlabored no accessory muscle use good effort. Abdomen soft nondistended nontender no masses organomegaly. Skin no rashes no pallor or icterus. Community-acquired pneumonia w sepsis present on admissionfailed outpatient treatmentstill spiking temps, concern on legionella (pulmonary resent antigen) vs possible gram negative resistant to beta lactams versus other. Did have concern about IgG deficiencybut levels were not low enough to really suggest this is a true diagnosis, SPEP sent, but now doubt that immune deficiency is at play. changed to levaquin - day 3 today. continue supportive care. Continue supportive care for nausea. Bronchoscopy done, await results. Start trial of empiric steroids. Have advised against vaping entirely. It is interesting that his stay in [place] appears almost identical, and was almost exactly a year ago, but I am hard pressed to find seasonal or environmental causes for this presentation. We will continue to review. otherwise as above Subjective Patient does not endorse any significant changes since yesterday. He still feels febrile and short of breath. He also continues to feel nauseous and has only been able to tolerate fruit and crackers. Review of Systems Constitutional: + fever and + anorexia; no chills and no body aches Eyes: no problem reported Ear, Nose, Mouth, Throat: no problem reported Respiratory: + cough (mild, intermittent) and + dyspnea; no pain on inspiration Cardiovascular: no chest pain, no palpitations and no calf pain Gastrointestinal: + nausea; no abdominal pain and no vomiting Genitourinary: no problem reported Musculoskeletal: no problem reported Neurologic: no problem reported Psychiatric: no problem reported Physical Exam Constitutional: WD/WN, vitals as above no acute distress Eyes: PERRL, conjunctivae normal, anicteric sclerae ENMT: external ear and nose normal, oropharynx normal Neck: normal visual inspection Respiratory: normal respiratory effort, lungs clear to auscultation Cardiovascular: RRR, no murmur, no edema Gastrointestinal (Abdomen): normal bowel sounds, soft, nontender, no hepatosplenomegaly Skin: no rashes, warm and dry Psychiatric: A+Ox3, euthymic affect Results & Data ([facility]) Vital Signs (Past 12 Hours) Vital Signs Temp Pulse Pulse Resp BP BP Pulse Ox 12/09/20 16:43 38.9 C H 12/09/20 15:11 37.6 C H 132 H 20 97/60 L 91 12/09/20 14:22 38.0 C H 129 H 18 117/71 91 12/09/20 13:15 37.8 C H 117 H 16 107/58 L 92 12/09/20 12:45 37.6 C H 118 H 16 115/67 91 12/09/20 12:15 37.7 C H 110 H 18 122/66 93 12/09/20 11:55 117 H 24 106/67 92 12/09/20 11:45 117 H 24 118/74 91 12/09/20 11:40 127 H 20 118/67 91 12/09/20 11:35 122 H 20 107/66 93 12/09/20 11:30 123 H 20 121/69 91 12/09/20 11:25 127 H 20 120/62 91 12/09/20 11:20 127 H 24 116/62 91 12/09/20 11:15 132 H 24 125/73 93 12/09/20 11:10 121 H 24 128/62 93 12/09/20 11:05 137 H 24 129/81 91 12/09/20 11:00 135 H 24 107/73 91 12/09/20 10:55 143 H 24 147/77 H 91 12/09/20 10:50 139 H 24 122/68 91 12/09/20 10:45 160 H 24 141/80 H 91 12/09/20 10:40 117 H 20 123/68 90 12/09/20 10:35 109 H 20 111/78 94 12/09/20 10:25 109 H 20 106/75 95 12/09/20 06:07 37.7 C H 97 H 16 100/65 90
--- NOTE | 2020-12-09 18:02 | Billing Data ---
Date of Service December 09, 2020 Coding Level of Care Code 98871 Subseq Hosp Care Lvl 3
[2020-12-09] MEDS: methylPREDNISolone 40 MG in SYRINGE 0 ML IV SCH (20:01)
[2020-12-10] MEDS: ONDANSETRON INJ 2 MG/ML 2 ML VIAL IV SCH ×4 (05:41→21:25)
[2020-12-10 06:00] LABS: Basophils # (auto) 0.01 K/uL (0-0.2); Basophils % (auto) 0.1 %; Hematocrit (blood only) 38.4 % (42-52); Hemoglobin 13.1 g/dL (14.0-18.0); Immature Granulocytes # (auto) 0.12 K/uL (0.00-0.02); Immature Granulocytes % (auto) 0.7 %; Lymphocytes # (auto) 1.19 K/uL (1.2-3.4); Lymphocytes % (auto) 6.6 %; Mean Corpuscular Hemoglobin 30.3 pg (25-34); Mean Corpuscular Hgb Conc 34.1 g/dL (32-36); Mean Corpuscular Volume 88.9 fL (80-100); Mean Platelet Volume 8.9 fL (7.4-10.4); Monocytes # (auto) 0.13 K/uL (0.11-0.59); Monocytes % (auto) 0.7 %; Neutrophils # (auto) 16.58 K/uL (1.4-6.5); Neutrophils % (auto) 91.9 %; Platelet Count 607 K/uL (130-400); RDW Coefficient of Variation 13.2 % (11.5-14.5); RDW Standard Deviation 43.5 fL (36.4-46.3); Red Blood Count 4.32 M/uL (4.7-6.1); White Blood Count 18.03 K/uL (4.8-10.8)
[2020-12-10 06:30] LABS: BUN Creatinine Ratio 17.5 (10-20); Calcium 9.7 mg/dl (8.5-10.1); Creatinine Clr Calc Pharmacy 157.1 ml/min; Est GFR (African American) 140.5 ml/min; Est GFR (Non-African American) 121.2 ml/min; Potassium 4.4 mmol/L (3.5-5.1)
[2020-12-10] MEDS: ENOXAPARIN INJ 40 MG/0.4 ML SYR SQ SCH (08:23)
[2020-12-10] MEDS: methylPREDNISolone 40 MG in SYRINGE 0 ML IV SCH ×2 (08:24→21:25)
[2020-12-10] MEDS: levoFLOXacin/D5W 750 MG/150 ML BAG IV SCH (08:24)
[2020-12-10] MEDS: FAMOTIDINE 20 MG TAB PO SCH ×2 (08:24→21:25)
[2020-12-10] MEDS: PANTOprazole 40 MG TAB PO SCH ×2 (08:25→21:25)
--- NOTE | 2020-12-10 13:15 | Hospitalist Progress Note ---
Date of Service December 10, 2020 Assessment & Plan (1) Community acquired pneumonia: Js Phillips is a 25-year-old male with a PMHx of community acquired pneumonia (2019) and viral meningitis who presented to [facility] emergency department on 11/30/20 with a 1-day history of cough, shortness of breath, and fever. CXR revealed bibasilar opacities suggestive of pneumonia and patient was prescribed azithromycin and amoxicillin for outpatient treatment of community acquired pneumonia. However, he returned to the emergency department on 12/02/20 with nausea, vomiting, dehydration, and post-tussive emesis at which time he was admitted for inpatient treatment of community acquired pneumonia. Community Acquired Pneumonia CXR 12/03/20: moderate bilateral airspace opacities suggestive of pneumonia that had progressed compared to CXR on 12/01/20. IV Ceftriaxone + Azithromycin initiated 12/03/20. Discontinued 12/06/20 due to insufficient clinical improvement and persistent fever. Initiated IV Levofloxacin on 12/06/20. Patient has been on multiple beta lactam antibiotics without improvement so change to Levofloxacin may cover potential resistant bacteria such as H. influenza Levofloxacin will provide legionella coverage as well as legionella antigen is still pending. MRSA swab negative on admission. Repeat swab 12/07/20 also negative Covid swab negative on admission. Repeat covid swab negative on 12/06/20. Influenza and RSV negative Blood cultures negative / Strep panel pending. Procalcitonin within normal limits on admission. Repeat level on 12/07/20 elevated at 0.78 Legionella antigen negative. Repeat Legionella antigen pending. Normal LFTs. Prominent GI symptoms but they seem to be related to antibiotic-induced nausea. Tessalon anti-tussive. Zofran, Promethazine, and famotidine PRN for GI symptoms. IV Metoclopramide started 12/06/20 due to persistent nausea. Immunoglobulin levels: IgG 615 (mildly low), IgA (193) and IgM (97.7) within normal range Chest CT 12/07/20: Bilateral peripheral predominant ground glass opacities with bibasilar patchy consolidation, suggestive of multifocal PNA. Mild mediastinal and hilar adenopathy, likely reactive. Trace pleural effusions bilaterally ESR (127) and CRP (39.2) both elevated NT-proBNP normal (131) Mycoplasma IgM pending HIV screening negative. Verbal consent obtained Pulmonology consult appreciated. Bronchoscopy performed 12/09/20. Awaiting sample results. Initiated IV methylprednisolone on 12/09/20 due to suspicion for potential inflammatory cause of prolonged febrile state and respiratory illness Patient endorses vaping e-cigarettes. Last use >1 month ago. Patient thinks he began using e-cigarettes within the past year (after 2019 admission for PNA) but timeline is not definitive. Therefore, vaping-induced lung injury cannot be ruled out as the cause of the patient's current presentation or his similar presentation in November 2019. Recommended discontinuation of vaping -Symptoms improved with IV steroids- continue 2. Nausea Legionella antigen pending Continue Zofran scheduled, started IV Metoclopramide 10 mg PRN on 12/06/20 Continue acid suppression with Pantoprazole 40 mg PO BID and Famotidine 20 mg PO BID 3. History of Recurrent Infections Patient has had two episodes of CAP within the last 1-2 years as well as a history of viral meningitis and frequent childhood infections. He also has a sibling with IgA deficiency. Due to the patient's personal and family history, it is reasonable to obtain immunoglobulin levels at this time to investigate for CVID or another immunodeficiency. Immunoglobulin levels. IgG 615 (mildly low), IgA (193) and IgM (97.7) within normal range SPEP pending [id number] pending 4. Tachycardia Hx of being tachycardic with a HR of 138. Sinus tachycardia, otherwise normal. Patient hypotensive with BP of 86/50 but remained stable. Most likely due to hypovolemia from minimal PO intake. 1 L normal saline bolus administered No signs concerning for pulmonary embolism or any other etiologies that warrant further testing at this time. -Currently resolved Code Status: Full Code F/E/N: Normal Diet VTE PPx: Lovenox Disposition: Medical Floor (2) Failure of outpatient treatment: (3) Hypophosphatemia: Admission and Anticipated Discharge Date Admission Date: December 03, 2020 Supervising Physician Co-Signing Physician Notes I personally examined the patient and verified all yost points of history and exam, discussed case, and agree with decision making with Dr Tracywe Was able to get cleaned up and felt far less dyspnea on exertion and overall effort of exertion today than any other prior day. Overall feeling slightly better. Vitals noted, in general he is awake and alert pleasant no distress but does appear quite fatigued. HEENT normocephalic atraumatic mucous membranes moist. Breathing unlabored no accessory muscle use good effort. Abdomen soft nondistended nontender no masses organomegaly. Skin no rashes no pallor or icterus. Community-acquired pneumonia w sepsis present on admissionfailed outpatient treatmentstill spiking temps, concern on legionella (pulmonary resent antigen) vs possible gram negative resistant to beta lactams versus other. Did have concern about IgG deficiencybut levels were not low enough to really suggest this is a true diagnosis, SPEP sent, but now doubt that immune deficiency is at play. changed to levaquin - day 4 today. continue supportive care. Continue supportive care for nausea. Bronchoscopy done, appreciate pulmonary input. Ongoing trial of empiric steroids. Have advised against vaping entirely. It is interesting that his stay in [place] appears almost identical, and was almost exactly a year ago, but I am hard pressed to find seasonal or environmental causes for this presentation. We will continue to review. otherwise as above, if he continues to be fever free into tomorrow, possibly home on p.o. steroids. Subjective Yasmani states he felt better this AM. States he had an increased need for oxygen but that has since resolved. Review of Systems Constitutional: no fever, no chills and no sweats Respiratory: no dyspnea Cardiovascular: no chest pain Gastrointestinal: no abdominal pain, no nausea and no vomiting Physical Exam Physical Exam: General: Alert, oriented. No acute distress Skin: No noted rashes or bruises Psych: Appropriate mood and affect Neuro: No gross deficits HEENT: NC/AT Chest: Nontender to palpation. CV: RRR, Normal s1, s2. No murmurs appreciated Resp: Breath sounds coarse bilaterally, no increased effort of breathing. Abdomen:Soft, nontender, nondistended. No guarding. No organomegaly appreciated. Extremities: No edema in lower extremities bilaterally. Results & Data Results & Data ([facility]) Vital Signs (Past 12 Hours) Vital Signs Temp Pulse Resp BP BP Pulse Ox 12/10/20 07:16 36.5 C 81 16 115/70 89 L 12/10/20 02:52 37.0 C 83 16 115/70 90 Resident Activity Tracking Resident Involvement: Resident Care Provided Care Provided: Adult Hospital Medicine (1) Community acquired pneumonia Laterality: unspecified laterality Qualified Code(s): J18.9 - Pneumonia, unspecified organism
--- NOTE | 2020-12-10 13:43 | Pulmonology Progress Note ---
Date of Service December 10, 2020 Assessment & Plan (1) Pneumonia: CT chest 12/07/2020 personally reviewed: Diffuse rhonchorous opacities appreciated bilaterally upper and lower lobes minimal reticulation in the lower lobes and consolidative process in the left lower lobe. Minimal right hilar lymphadenopathy likely reactive. --Multilobar pneumonia Diffuse groundglass opacities along with consolidative process bilateral lower lobes Nasal MRSA negative x2 COVID-19 PCR negative, influenza A/B negative x3 ESR 127, CRP 39, procalcitonin 0.33 --> 0.78 Blood culture negative to date Urine Legionella negative, Mycoplasma Ig M negative HIV negative, Beta D-Glucan negative Opacities with consolidative process in the lower lobes Differential includes atypical pneumonia There is no eosinophilia or lymphopenia appreciated on the CBC EVALI aka VAPing associated lung injury is also in the differential S/p bronchoscopy 12/09/2020, BAL showed 18% lymphocytes Patient apparently had similar episode back in [place] almost a year ago. He was doing vaping at that time as well but not this frequent right as he is right now. --Right lower lobe pulmonary nodule 6 mm Likely component of consolidative process Repeat CT chest in 3 months Plan: Continue with levofloxacin Follow-up BAL culture Follow-up autoimmune work-up as well as hypersensitivity pneumonitis panel Continue with steroids All questions of the patient as well as patient's mom who was on the phone were answered. Please note the above document was generated using voice recognition software. It may contain grammatical, syntax or spelling errors.Any formal questions or concerns about the content, text or information contained within the body of this dictation should be directly addressed to the provider for clarification. Laterality: bilateral Lung location: lower lobe of lung Pneumonia type: due to unspecified organism Qualified Code(s): J18.9 - Pneumonia, unspecified organism (2) Abnormal chest CT: (3) Pulmonary nodule: Admission and Anticipated Discharge Date Admission Date: December 03, 2020 Subjective Patient seen and examined at bedside. No acute distress. No adverse events overnight. Patient was on 2 L nasal cannula saturating 93-94%. He states that he is feeling better. Shortness of breath is improved. He is coughing but not bringing up any phlegm. Nausea has also improved. No headache, no dizziness, no blurry vision. Review of Systems Review of Systems: All systems reviewed & are unremarkable except as noted in Subjective Physical Exam Physical Exam: Constitutional: No acute distress HEENT: EOMI, PERRLA, no tenderness on sinuses Respiratory system: Decreased air entry bilaterally, no wheeze, no rhonchi, positive crackles bilateral lower lobes CVS: S1-S2 positive, no murmurs or gallops, positive gynecomastia Abdomen: Soft, nontender, nondistended, positive bowel sounds x4 Extremities: +2 pulses bilaterally radialis/ dorsalis pedis, no cyanosis, no edema Neuro: Awake alert oriented x3 Psych: Normal mood and affect G/U: No [place] Skin: no rashes, warm and dry Lymphatic: no cervical or axillary lymphadenopathy Results & Data Results & Data ([facility]) Vital Signs (Past 12 Hours) Vital Signs Temp Pulse Resp BP BP Pulse Ox 12/10/20 07:16 36.5 C 81 16 115/70 89 L 12/10/20 02:52 37.0 C 83 16 115/70 90 12/10/20 05:24 12/10/20 05:24 PG Care Time/CCT Total # of Minutes Spent Total Time Spent with Patient: Total time spent is greater than 50% in coordination of care (as documented) at patient's floor/unit and/or counseling patient: Coding Level of Care Code 29258 Subseq Hosp Care Lvl 3 Diagnoses Pneumonia J18.9 Laterality: bilateral Lung location: lower lobe of lung Pneumonia type: due to unspecified organism Abnormal chest CT R93.89 Pulmonary nodule R91.1
--- NOTE | 2020-12-10 16:24 | Electrocardiogram Report ---
Test Reason : Blood Pressure : / mmHG Vent. Rate : 127 BPM Atrial Rate : 127 BPM P-R Int : 122 ms QRS Dur : 078 ms QT Int : 322 ms P-R-T Axes : 052 024 037 degrees QTc Int : 467 ms Sinus tachycardia Otherwise normal ECG When compared with ECG of 03-DEC-2020 21:23, Nonspecific T wave abnormality no longer evident in Anterior leads Confirmed by Petar Olsen ([id number]) on 12/10/2020 4:24:23 PM Referred By: REFERRED SELF Confirmed By:Augustine Olsen
--- NOTE | 2020-12-10 17:32 | Billing Data ---
Date of Service December 10, 2020 Coding Level of Care Code 37074 Subseq Hosp Care Lvl 3
[2020-12-11] MEDS: ONDANSETRON INJ 2 MG/ML 2 ML VIAL IV SCH ×2 (05:49→11:54)
[2020-12-11 06:09] LABS: Hematocrit (blood only) 38.1 % (42-52); Hemoglobin 12.8 g/dL (14.0-18.0); Mean Corpuscular Hemoglobin 29.8 pg (25-34); Mean Corpuscular Hgb Conc 33.6 g/dL (32-36); Mean Corpuscular Volume 88.8 fL (80-100); Mean Platelet Volume 8.8 fL (7.4-10.4); Platelet Count 728 K/uL (130-400); RDW Coefficient of Variation 13.4 % (11.5-14.5); Red Blood Count 4.29 M/uL (4.7-6.1); White Blood Count 24.73 K/uL (4.8-10.8)
[2020-12-11 06:38] LABS: BUN Creatinine Ratio 19.5 (10-20); Calcium 8.6 mg/dl (8.5-10.1); Creatinine Clr Calc Pharmacy 153.3 ml/min; Est GFR (African American) 139.1 ml/min; Potassium 4.4 mmol/L (3.5-5.1)
[2020-12-11 06:45] LABS: Basophils # (auto) 0.01 K/uL (0-0.2); Immature Granulocytes # (auto) 0.25 K/uL (0.00-0.02); Lymphocytes # (auto) 1.29 K/uL (1.2-3.4); Lymphocytes % (auto) 5.2 %; Monocytes # (auto) 0.56 K/uL (0.11-0.59); Monocytes % (auto) 2.3 %; Neutrophils # (auto) 22.62 K/uL (1.4-6.5); Neutrophils % (auto) 91.5 %
--- NOTE | 2020-12-11 07:11 | XRay Report ---
XR chest 1V portable CLINICAL HISTORY: f/u COMPARISON STUDY: Chest CT December 07, 2020. Chest radiograph December 09, 2020. FINDINGS: There is no pneumothorax or pleural effusion. Cardiac size is normal. Bilateral airspace op acities have slightly improved. IMPRESSION: Slight improvement of bilateral airspace opacities. ACT 112: Negative or not required by law. Electronically signed by: Anand Purvis M.D. 12/11/2020 7:10 AM
[2020-12-11] MEDS: PANTOprazole 40 MG TAB PO SCH (08:36)
[2020-12-11] MEDS: FAMOTIDINE 20 MG TAB PO SCH (08:36)
[2020-12-11] MEDS: ENOXAPARIN INJ 40 MG/0.4 ML SYR SQ SCH (08:36)
[2020-12-11] MEDS: methylPREDNISolone 40 MG in SYRINGE 0 ML IV SCH (08:37)
[2020-12-11] MEDS: levoFLOXacin/D5W 750 MG/150 ML BAG IV SCH (08:37)
--- NOTE | 2020-12-11 09:11 | Discharge Summary ---
Date of Service December 11, 2020 Admission HPI Per Admitting Provider 25yo C male presenting with community acquired pneumonia with failed outpatient therapy. Patient's symptoms of cough, SOB, body aches, fever and chest tightness began on 11/29/20. He was seen in the ER on 11/30/20 and sent home with Azithromycin and Amoxicillin which he started on 11/30. He returned to the ER on 12/02/20 due to persistence of symptoms and was discharged home after medical consultation with instruction to continue antibiotics as prescribed, rest and aggressively hydrate. Patient returns today with persistent symptoms. He has been febrile ongoing for the last several days, responsive briefly to Tylenol. He has been taking his antibiotics but continues to feel ill - no energy, ongoing nausea, inability to tolerate PO. He also noted oxygen saturation of 89% at home. He has a dry cough with some chest discomfort. Of note, patient was hospitalized at [facility] [place] x 5 days in September 2019 for similar presentation. He was treated with IV antibiotics and evaluated by several specialists. He does not have a history of asthma. His sister has an IgG deficiency and patient's mother is planning to have patient evaluated for the same. ER Course: 2L NSS, Zosyn, Neb Admission Exam Per Admitting Provider General: patient resting comfortably, NAD, ill in appearance, AA&O x 4 Skin: warm, dry, intact, no rashes or lesions, HEENT: NC/AT, PERRL, EOMI, anicteric sclera, conjunctiva without injection, external ear normal to inspection and nontender, nares patent, slightly dry mucus membranes, dentition intact, no oropharyngeal lesions, neck supple, trachea midline, no LAD, no thyromegaly, no JVD Heart: +S1/S2, regular, tachycardic, no m/r/g Lungs: equal air entry bilaterally, +crackles in right mid-lung field, no rhonchi/wheezes Abd: +BS, soft, NT/ND, no masses/organomegaly/ascites Ext: warm, 2+ pulses in UE/LE bilaterally, no clubbing/cyanosis or edema Neuro: nonfocal, patient AA&O x 4, speech intact, no facial droop, moving all extremities on command with equal strength 11/30 Principal Diagnosis Atypical Pneumonia Discharge Exam General: Alert, oriented. No acute distress Skin: No noted rashes or bruises Psych: Appropriate mood and affect Neuro: No gross deficits HEENT: NC/AT Chest: Nontender to palpation. CV: RRR, Normal s1, s2. No murmurs appreciated Resp: Breath sounds clear but decreased bilaterally, no increased effort of breathing. Abdomen: BS+. Soft, nontender, nondistended. No guarding. No organomegaly appreciated. Extremities: No edema in lower extremities bilaterally. Discharge Data Allergies Allergy/AdvReac Type Severity Reaction Status Date / Time No Known Allergies Allergy Verified 12/03/20 21:29 Consultations 12/03/20 22:14 ED Decision to Admit Stat 12/06/20 19:12 Consult Health Information Management Routine 12/07/20 09:40 Consult Pulmonology Routine Procedures Performed Operation Date: 12/09/20 10:30 Actual Procedures p Bronchoscopy Radiology(Bilateral) - Rodrigue Mike MD Ordered Studies 12/07/20 06:40 CT chest diagnostic w con Routine Hospital Course (1) Community acquired pneumonia: Js Phillips is a 25-year-old male with a PMHx of community acquired pneumonia (2019) and viral meningitis who presented to [facility] emergency department on 11/30/20 with a 1-day history of cough, shortness of breath, and fever. CXR revealed bibasilar opacities suggestive of pneumonia and patient was prescribed azithromycin and amoxicillin for outpatient treatment of community acquired pneumonia. However, he returned to the emergency department on 12/02/20 with nausea, vomiting, dehydration, and post-tussive emesis at which time he was admitted for inpatient treatment of community acquired pneumonia. He was discharged on 12/11/2020 after being 24+hours free of fevers after starting steroid therapy. Community Acquired Pneumonia CXR 12/03/20: moderate bilateral airspace opacities suggestive of pneumonia that had progressed compared to CXR on 12/01/20. IV Ceftriaxone + Azithromycin initiated 12/03/20. Discontinued 12/06/20 due to insufficient clinical improvement and persistent fever. Initiated IV Levofloxacin on 12/06/20. Patient has been on multiple beta lactam antibiotics without improvement so change to Levofloxacin may cover potential resistant bacteria such as H. influenza Levofloxacin will provide legionella coverage as well as legionella antigen is still pending. MRSA swab negative on admission. Repeat swab 12/07/20 also negative Covid swab negative on admission. Repeat covid swab negative on 12/06/20. Influenza and RSV negative Blood cultures negative / Strep panel pending. Procalcitonin within normal limits on admission. Repeat level on 12/07/20 elevated at 0.78 Legionella antigen negative. Repeat Legionella antigen negative. Normal LFTs. Prominent GI symptoms but they seem to be related to antibiotic-induced nausea. Tessalon anti-tussive. Zofran, Promethazine, and famotidine PRN for GI symptoms. IV Metoclopramide started 12/06/20 due to persistent nausea. Immunoglobulin levels: IgG 615 (mildly low), IgA (193) and IgM (97.7) within normal range Chest CT 12/07/20: Bilateral peripheral predominant ground glass opacities with bibasilar patchy consolidation, suggestive of multifocal PNA. Mild mediastinal and hilar adenopathy, likely reactive. Trace pleural effusions bilaterally ESR (127) and CRP (39.2) both elevated NT-proBNP normal (131) Mycoplasma IgM pending HIV screening negative. Verbal consent obtained Pulmonology consult appreciated. Bronchoscopy performed 12/09/20. Awaiting sample results. Initiated IV methylprednisolone on 12/09/20 due to suspicion for potential inflammatory cause of prolonged febrile state and respiratory illness. Symptoms improved with IV methylprednisone 40mg BID. Discharged with a Prednisone 12 day taper and 2 days of Levaquin 750mg daily therapy for a total of 7 days. Patient endorses vaping e-cigarettes. Last use >1 month ago. Patient thinks he began using e-cigarettes within the past year (after 2020 admission for PNA) but timeline is not definitive. Therefore, vaping-induced lung injury cannot be ruled out as the cause of the patient's current presentation or his similar presentation in November 2019. Recommended discontinuation of vaping. Nausea Legionella antigen Negative. Culture pending. Zofran scheduled, started IV Metoclopramide 10 mg PRN on 12/06/20 Acid suppression with Pantoprazole 40 mg PO BID and Famotidine 20 mg PO BID History of Recurrent Infections Patient has had two episodes of CAP within the last 1-2 years as well as a history of viral meningitis and frequent childhood infections. He also has a sibling with IgA deficiency. Due to the patient's personal and family history, it is reasonable to obtain immunoglobulin levels at this time to investigate for CVID or another immunodeficiency. Immunoglobulin levels. IgG 615 (mildly low), IgA (193) and IgM (97.7) within normal range SPEP pending [id number] pending Tachycardia, currently resolved. Hx of being tachycardic with a HR of 138. Sinus tachycardia, otherwise normal. Patient hypotensive with BP of 86/50 at that time but remained stable. Most likely due to hypovolemia from minimal PO intake. 1 L normal saline bolus administered. No signs concerning for pulmonary embolism or any other etiologies that warrant further testing at this time. (2) Failure of outpatient treatment: (3) Hypophosphatemia: Total Time Total Time Spent Total Time Spent (In Minutes): <30 Discharge Plan Discharge Items Patient Disposition: Home - Self-Care Reason For Visit: PNEUMONIA, FAILDED OUTPATIENT THERAPY Discharge Diagnosis: Pneumonia Condition on Discharge: Good Activity: Resume your previous activity Non-emergency contact: Primary Care Provider Call non-emergency contact if: you have any medication questions and your symptoms worsen Follow-up/Referrals: Rodrigue Mike MD [Physician] - Pamela Rolle [Primary Care Provider] - Ganga Ernst MD [Physician] - Diet: Regular Addtl Attending Provider Instructions: You were hospitalized at [facility] after not improving with oral antibiotics for treatment of a pneumonia. A chest Xray was repeated in the hospital, showing evidence of progressive infection in your lungs. Your white blood cell count (a marker of infection) was slightly elevated. You continued to spike fevers while under our care. A cat scan of your chest was ordered, which showed evidence of infection in both lungs. You were tested for COVID 19 twice while in the hospital, and both came back negative. We suspect you had an infection with an inflammatory process that was triggered by vaping. Please continue to take the Levaquin antibiotic for 2 more days. Please continue to take the steroids in a taper as directed. Please stop vaping as it is likely contributing to these episodes. Please follow up with your primary care doctor within 1 week of discharge. We also ask that you follow up with the lung doctor (Dr. Mike) in the office. We would also like you to see a weapons specialist as well. Should your symptoms return or seem to be worsening, or should you develop any fevers please return to the emergency room. Pending Studies at Discharge: No Stand-Alone Forms: [facility], Work/School Release, Smoking Cessation Medications and DC Order Prescriptions: New levofloxacin 750 mg tablet 750 mg PO DAILY Qty: 2 RF: 0 prednisone 20 mg tablet See Rx Instructions .ROUTE .COMPLEX Qty: 24 RF: 0 Continued albuterol sulfate 90 mcg/actuation HFA aerosol inhaler 2 inh inhalation Q4H PRN (Reason: shortness of breath or wheezing) Qty: 8.5 RF: 0 benzonatate [Tessalon Perles] 100 mg capsule 100 mg PO Q6H PRN (Reason: cough) Qty: 20 RF: 0 Discontinued azithromycin 250 mg tablet See Rx Instructions .ROUTE .COMPLEX Qty: 6 RF: 0 amoxicillin 500 mg capsule 1,000 mg PO Q8H 5 Days Qty: 30 RF: 0 Discharge Orders: Discharge Order (Routine); Ordered 12/11/20 Ordered By: Velia Siegel/Other Patient Handouts: Understanding E-Cigarettes and Vaping Admission Data Admit Date/Time: 12/03/20 22:44 Attending Provider: Ryan Fenton Admit Provider: Dyan Payan Primary Care Provider: Pamela Rolle Other Providers: Dyan Payan ; Jackeline Machuca ; Rodrigue Mike Other Interventions: Discharge Summary Assessment (RN) Last Done: 12/11/20 11:44 Supervising Physician Co-Signing Physician Notes I personally examined the patient and verified all yost points of history and exam, discussed case, and agree with decision making with Dr Peter feels better overall, feels up to going home. discussed course of treatment and discussed follow up. Vitals noted, in general he is awake and alert pleasant no distress but does appear quite fatigued. HEENT normocephalic atraumatic mucous membranes moist. Breathing unlabored no accessory muscle use good effort. Skin no rashes no pallor or icterus. Community-acquired pneumonia w sepsis present on admissionfailed outpatient treatmentinitially concern on legionella (now negative x2)) vs possible gram negative resistant to beta lactams versus other - did not really respond much to abx. Did have concern about IgG deficiencybut levels were not low enough to really suggest this is a true diagnosis, SPEP sent, but now doubt that immune deficiency is at play. changed to levaquin - day 5 today. bronch done and serologies for inflammatory/autoimmune diseases sent and pending. really started to improve after steroids started, suggesting possibly inflammatory, rather than infectious, etiology. ?all vaping induced -- he notes that he will quit. to f/u pulmonary and review pending labs. if all negative, just to r/o any odd autoimmune process since this appeared so much more inflammatory than infectious, would ask for rheum eval before entirely correlating w vaping - particularly since it happened twice in two years nearly identically. finish levaquin since he did show a few gram negatives on bronch culture - discussed tendonopathy risk. otherwise as above, stable for home Resident Activity Tracking Resident Involvement: Resident Care Provided Care Provided: Adult Hospital Medicine
--- NOTE | 2020-12-11 10:26 | Pulmonology Progress Note ---
Date of Service December 11, 2020 Assessment & Plan (1) Community acquired pneumonia: Laterality: unspecified laterality Qualified Code(s): J18.9 - Pneumonia, unspecified organism (2) Pneumonia: Laterality: bilateral Lung location: lower lobe of lung Pneumonia type: due to unspecified organism Qualified Code(s): J18.9 - Pneumonia, unspecified organism (3) Abnormal chest CT: Impression: 25-year-old male with diffuse pulmonary infiltrates of unclear etiology. He is status post bronchoscopy with BAL which was nondescript. Cultures have been negative. He is been placed on steroids with significant improvement in his oxygen requirement. Recommendations: 1. Hypoxemic respiratory failure with diffuse pulmonary infiltrates: Pattern may be consistent with vaping induced lung injury (EVALI). Treatment would involve a short course of prednisone and would recommend 40 mg a day for 5 days then stop. Ultimately, avoidance of vaping is recommended and discussed with the patient at bedside. Recommend assessment with two-step for need for supplemental oxygen prior to discharge. 2. Cultures are negative. The patient has demonstrated an increased white bl ood cell count which may be due to demargination related to steroids. There are a large number of cultures, serologies and hypersensitivity pneumonitis panel that are currently pending. He should follow-up with his primary care provider to review results with those studies. If outpatient pulmonary follow-up is required, he can see Dr. Mike in the outpatient setting If the patient is able to ambulate and doing well clinically, I think he can be dismissed from the hospital with outpatient follow-up with his primary care provider. Recommendations were discussed with the patient at the bedside and questions answered to the best of my ability. Admission and Anticipated Discharge Date Admission Date: December 03, 2020 Subjective Patient seen and examined. EMR reviewed. Discussed with off going gold nib grinder. The patient reports that he is feeling a little weaker today. He is not been as active as he was yesterday. He is off oxygen. He is coughing but not expecto rating any phlegm. He is not had any hemoptysis. No fevers chills or night sweats. No significant chest pain but he has had some chest tightness. No palpitations. Review of Systems Review of Systems: All systems reviewed & are unremarkable except as noted in HPI & below Physical Exam Constitutional: WD/WN, vitals as above Neck: trachea midline, no thyromegaly Respiratory: normal respiratory effort, lungs clear to auscultation Cardiovascular: RRR, no murmur, no edema Gastrointestinal (Abdomen): normal bowel sounds, soft, nontender, no hepatosplenomegaly Musculoskeletal: Extremities: extremities normal to inspection Skin: no rashes, warm and dry Neurologic: Nonfocal exam Lymphatic: no cervical lymphadenopathy Results & Data Results & Data ([facility]) Vital Signs (Past 12 Hours) Vital Signs Temp Pulse Resp BP BP Pulse Ox 12/11/20 07:36 36.7 C 87 16 110/64 91 12/10/20 22:31 37.2 C 82 16 122/72 91 Laboratory Results 12/11/20 05:43 12/11/20 05:43 Diagnostic Findings Chest x-ray today demonstrates improvement in the bilateral airspace opacities. PG Care Time/CCT Total # of Minutes Spent Total Time Spent with Patient: Total time spent is greater than 50% in c oordination of care (as documented) at patient's floor/unit and/or counseling patient: Coding Level of Care Code 20280 Subseq Hosp Care Lvl 2 Diagnoses Community acquired pneumonia J18.9 Laterality: unspecified laterality Pneumonia J18.9 Laterality: bilateral Lung location: lower lobe of lung Pneumonia type: due to unspecified organism Abnormal chest CT R93.89
--- NOTE | 2020-12-11 18:07 | Billing Data ---
Date of Service December 11, 2020 Coding Level of Care Code D/C Day Management <30 mins
[2020-12-14 07:34] LABS: Albumin 2.9 g/dL (3.8-4.8); Alpha 2 Globulin 1.7 g/dL (0.5-0.9); Beta-1-Globulin 0.5 g/dL (0.4-0.6); Beta-2-Globulin 0.5 g/dL (0.2-0.5); Gamma Globulin 0.7 g/dL (0.8-1.7); Monoclonal Protein Band 1 DNR g/dL (NONE DETECTED); Monoclonal Protein Band 2 DNR g/dL (NONE DETECTED); Monoclonal Protein Band 3 DNR g/dL (NONE DETECTED); Total Protein 7.2 g/dL (6.1-8.1)
[2020-12-17 20:09] LABS: Alternaria Alternata IgG 5.5 mcg/mL (<13.6); Anti Cardiolipin Ab IgG <14 GPL; Anti Cardiolipin Ab IgM <12 MPL; Anti Nuclear Antibody Screen NEGATIVE (NEGATIVE); Anti-Cardiolipin Ab IgA <11 APL; Anti-Centromere Ab <1.0 NEG AI (<1.0 NEG); Anti-SS-A <1.0 NEG AI (<1.0 NEG); Anti-SS-B <1.0 NEG AI (<1.0 NEG); Aureobasidium pullulans IgG 4.7 mcg/mL (<13.6); Chromatin Antibody <1.0 NEG AI (<1.0 NEG); Complement C3 293 mg/dL (82-185); DNA ds Crithidia NEGATIVE (NEGATIVE); Microsomal Ab <1 IU/mL (<9); RNP Antibody <1.0 NEG AI (<1.0 NEG); Saccharopolyspora rectivir Ab NOT DETECTED (NOT DETECTED); Scleroderma Anti Scl-70 Ab <1.0 NEG AI (<1.0 NEG); Sm Antibody <1.0 NEG AI (<1.0 NEG); Thermoactinomyces candidus Ab NOT DETECTED (NOT DETECTED); Thermoactinomyces sacchari Ab NOT DETECTED (NOT DETECTED)
[2020-12-18 21:21] LABS: Legionella Culture Source BA LAV; Source BRONCHIAL WASH
== END 2020-12-11 13:34 | disposition home or self-care (01) | DRG 871 ==
LOC: ED 21:04 → 3N 22:44 → SUATTDRO 22:44 → 3N 23:56